=== PATIENT | male | born 1945 | race Hispanic/Latino ===

== ENCOUNTER 2018-07-17 13:53 | Emergency (ER) | payer MEDICARE, OTHER ==
[~2018-07-17] VITALS: Ht 170.2 cm; Wt 63.5 kg
--- OUTSIDE RECORDS SUMMARY | 2018-07-17 13:56 | XMS REPORT | Clinical Summary ---
Author Author [facility]ine [facility] Organization [facility] Address Unknown Phone Unavailable Care Team Providers Care Electrochemist Name Role Phone Asked, No Pcp PCP Unavailable Allergies No Known Allergies Current Medications Prescription Sig. Disp. Refills Start End Date Status Date ticagrelor (BRILINTA) 90 Take 90 mg by mouth 2 Active mg tablet (two) times a day. pravastatin (PRAVACHOL) Take 40 mg by mouth Active 40 MG tablet daily. lisinopril Take 2.5 mg by mouth Active (PRINIVIL,ZESTRIL) 2.5 mg daily. tablet pregabalin (LYRICA) 75 MG Take 75 mg by mouth 2 Active capsule (two) times a day. famotidine (PEPCID) 20 MG Take 20 mg by mouth 2 Active tablet (two) times a day. rivaroxaban (XARELTO) 15 Take 15 mg by mouth. Active mg tablet empagliflozin (JARDIANCE) Take 10 mg by mouth Active 10 mg tablet tablet daily. Active Problems No known active problems Encounters Date Type Specialty Care Team Description 05/19/2018 [facility] Procedural Cardiology Antonino Ontiveros MD PAD (peripheral artery Encounter disease); Claudication, class II 05/19/2018 Orders Only Cardiology Antonino Ontiveros MD 05/19/2018 Procedure Pass Procedural Cardiology 05/19/2018 Procedure Pass Procedural Cardiology 05/19/2018 Surgery Procedural Cardiology Antonino Ontiveros MD Aortagram abdomen w run off [70245 (CPT)] after 07/16/2017 Social History Tobacco Use Types Packs/Day Years Used Date Former Smoker Smokeless Tobacco: Never Used Alcohol Use Drinks/Week oz/Week Comments No Sex Assigned at Date Recorded Not on file Last Filed Vital Signs Vital Sign Reading Time Taken Blood Pressure 111/74 05/19/2018 9:45 PM CDT Pulse 61 05/19/2018 9:45 PM CDT Temperature 37 C (98.6 F) 05/19/2018 5:35 PM CDT Respiratory Rate 15 05/19/2018 9:45 PM CDT Oxygen Saturation 98% 05/19/2018 9:45 PM CDT Inhaled Oxygen - - Concentration Weight 63.5 kg (140 lb) 05/19/2018 9:30 AM CDT Height 170.2 cm (5' 7") 05/19/2018 9:30 AM CDT Body Mass Index 21.93 05/19/2018 9:30 AM CDT Plan of Treatment Not on file Procedures Procedure Name Priority Date/Time Associated Diagnosis Comments POC GLUCOSE Routine 05/19/2018 Results for this 5:52 PM CDT procedure are in the results section. PARTIAL THROMBOPLASTIN STAT 05/19/2018 Results for this TIME (PTT) 9:25 AM CDT procedure are in the results section. PROTHROMBIN TIME WITH INR STAT 05/19/2018 Results for this 9:25 AM CDT procedure are in the results section. HC COMPLETE BLD COUNT STAT 05/19/2018 Results for this W/AUTO DIFF 9:25 AM CDT procedure are in the results section. ECG PRE/POST OP STAT 05/19/2018 Results for this 8:55 AM CDT procedure are in the results section. ZZESTIMATED GFR STAT 05/19/2018 Results for this 8:55 AM CDT procedure are in the results section. BASIC METABOLIC PANEL STAT 05/19/2018 Results for this 8:55 AM CDT procedure are in the results section. POC GLUCOSE Routine 05/19/2018 Results for this 8:49 AM CDT procedure are in the results section. after 07/16/2017 Results * POC glucose (05/19/2018 5:52 PM) Only the most recent of 2 results within the time period is included. POC glucose 77 65 - 99 mg/dL [facility] DEPARTMENT OF Comment: PATHOLOGY AND Meter ID: [id number] GENOMIC MEDICINE Steam Generating Powerplant Mechanic: Chalino Marin Performing Organization Address City/State/Zipcode Phone Number [facility] DEPARTMENT OF [address] [place] [address] PATHOLOGY AND GENOMIC MEDICINE * Partial thromboplastin time, activated (05/19/2018 9:25 AM) PTT 31.9 23.0 - 36.0 sec [facility] DEPARTMENT OF Comment: PATHOLOGY AND PTT therapeutic range for GENOMIC MEDICINE unfractionated heparin is 61.0-112.0 seconds which corresponds to Anti-Xa 0.3-0.7 U/ml. Specimen Blood Performing Organization Address City/[facility]/Zipcode Phone Number [address] [address] PATHOLOGY AND [facility] * Prothrombin time with INR (05/19/2018 9:25 AM) Prothrombin time 13.4 12.0 - 15.0 sec [facility] DEPARTMENT OF PATHOLOGY AND GENOMIC MEDICINE INR 1.0 [facility] DEPARTMENT OF Comment: PATHOLOGY AND The International Normalized GENOMIC MEDICINE Ratio (INR) is a therapeutic monitoring tool for patients who are stable on oral anticoagulant therapy. An INR of 2.0-3.0 is suggested for deep vein thrombosis/pulmonary embolism. Specimen Blood Performing Organization Address [facility] Centercode Phone Number [address] [address] PATHOLOGY AND [facility] * CBC with platelet and differential (05/19/2018 9:25 AM) WBC 6.00 4.50 - 11.00 k/uL [facility] DEPARTMENT OF PATHOLOGY AND GENOMIC MEDICINE RBC 3.80 (L) 4.40 - 6.00 m/uL [facility] DEPARTMENT OF PATHOLOGY AND GENOMIC MEDICINE HGB 11.9 (L) 14.0 - 18.0 g/dL [facility] DEPARTMENT OF PATHOLOGY AND GENOMIC MEDICINE HCT 35.3 (L) 41.0 - 51.0 % [facility] DEPARTMENT OF PATHOLOGY AND GENOMIC MEDICINE MCV 92.9 82.0 - 100.0 fL [facility] DEPARTMENT OF PATHOLOGY AND GENOMIC MEDICINE MCH 31.3 27.0 - 34.0 pg [facility] DEPARTMENT OF PATHOLOGY AND GENOMIC MEDICINE MCHC 33.7 31.0 - 37.0 g/dL [facility] DEPARTMENT OF PATHOLOGY AND GENOMIC MEDICINE RDW - SD 48.2 37.0 - 55.0 fL [facility] DEPARTMENT OF PATHOLOGY AND GENOMIC MEDICINE MPV 9.4 8.8 - 13.2 fL [facility] DEPARTMENT OF PATHOLOGY AND GENOMIC MEDICINE Platelet count 227 150 - 400 k/uL [facility] DEPARTMENT OF PATHOLOGY AND GENOMIC MEDICINE Nucleated RBC 0.00 /100 WBC [facility] DEPARTMENT OF PATHOLOGY AND GENOMIC MEDICINE Neutrophils 56.3 39.0 - 69.0 % [facility] DEPARTMENT OF PATHOLOGY AND GENOMIC MEDICINE Lymphocytes 22.3 (L) 25.0 - 45.0 % [facility] DEPARTMENT OF PATHOLOGY AND GENOMIC MEDICINE Monocytes 7.2 0.0 - 10.0 % [facility] DEPARTMENT OF PATHOLOGY AND GENOMIC MEDICINE Eosinophils 13.2 (H) 0.0 - 5.0 % [facility] DEPARTMENT OF PATHOLOGY AND GENOMIC MEDICINE Basophils 0.7 0.0 - 1.0 % [facility] DEPARTMENT OF PATHOLOGY AND GENOMIC MEDICINE Immature granulocytes 0.3Comment: "Immature 0.0 - 1.0 % [facility] DEPARTMENT OF granulocytes" (promyelocytes, PATHOLOGY AND myelocytes, metamyelocytes) GENOMIC MEDICINE Specimen Blood Performing Organization Address City/[facility]/Zipcode Phone Number [address] [address] PATHOLOGY AND GENOMIC MEDICINE * ECG Pre/Post Op (05/19/2018 8:55 AM) Ventricular rate 62 [facility] Atrial rate 62 [facility] QRSD interval 68 [facility] QT interval 392 [facility] QTC interval 397 [facility] QRS axis 1 -18 [facility] T wave axis 32 [facility] EKG impression Atrial-paced rhythm-Abnormal [facility] ECG-No previous ECGs available- Performing Organization Address [facility] Centercoaz Phone Number [address] [address] * Estimated GFR (05/19/2018 8:55 AM) GFR Non Af Amer 74 mL/min/1.73 m2 [facility] DEPARTMENT OF PATHOLOGY AND GENOMIC MEDICINE GFR Af Amer 89 mL/min/1.73 m2 [facility] DEPARTMENT OF Comment: PATHOLOGY AND Chronic kidney disease: <60 GENOMIC MEDICINE mL/min/1.73m2 Kidney failure: <15 mL/min/1.73m2 The estimated GFR is calculated from the IDMS-traceable Modification of Diet in Renal Disease Equation. The accuracy of the calculation is poor when the creatinine is normal. Calculated values >90 mL/min/1.73m2 are not reported. This equation has not been validated in children (<18 years), women, the elderly (>70 years), or ethnic groups other than Caucasians and Americans. Specimen Plasma specimen Performing Organization Address [facility] Centercode Phone Number [address] [address] PATHOLOGY AND [facility] * Basic metabolic panel (05/19/2018 8:55 AM) Sodium 140 135 - 148 mEq/L [facility] DEPARTMENT OF PATHOLOGY AND GENOMIC MEDICINE Potassium 5.1 (H) 3.5 - 5.0 mEq/L [facility] DEPARTMENT OF PATHOLOGY AND GENOMIC MEDICINE Chloride 105 98 - 112 mEq/L [facility] DEPARTMENT OF PATHOLOGY AND GENOMIC MEDICINE CO2 23 (L) 24 - 31 mEq/L [facility] DEPARTMENT OF PATHOLOGY AND GENOMIC MEDICINE Anion gap 12@ANIO 7 - 15 mEq/L [facility] DEPARTMENT OF PATHOLOGY AND GENOMIC MEDICINE BUN 24 (H) 8 - 23 mg/dL [facility] DEPARTMENT OF PATHOLOGY AND GENOMIC MEDICINE Creatinine 1.0 0.7 - 1.2 mg/dL [facility] DEPARTMENT OF PATHOLOGY AND GENOMIC MEDICINE Glucose 82 65 - 99 mg/dL [facility] DEPARTMENT OF PATHOLOGY AND GENOMIC MEDICINE Calcium 9.0 8.8 - 10.2 mg/dL [facility] DEPARTMENT OF PATHOLOGY AND GENOMIC MEDICINE Specimen Plasma specimen Performing Organization Address City/State/Zipcode Phone Number [facility] DEPARTMENT OF [address] [place] [phone] PATHOLOGY AND GENOMIC MEDICINE after 07/16/2017 Insurance Payer Benefit Subscriber ID Type Phone Address Plan / Group [employer] MED[employer]ARE [employer] xxxxxxxxx O MCR SOLUTIONS U[employer] MEDICARE UHC DUAL xxxxxxxxx O COMPLETE MCR
[2018-07-17] MEDS ORDERED: TETANUS/DIPHTHERIA TOX ADULT 0.5 ML SYR IM ONE (14:30)
[2018-07-17] MEDS ORDERED: NEOMYCIN/POLYMYX/BACITR OINT 0.9 GM PKT TOP ONE (14:30)
== END 2018-07-17 15:02 | disposition home or self-care (01) ==
LOC: ER 13:53
DX: S80.211A Abrasion, right knee, initial encounter (principal); W17.89XA Other fall from one level to another, initial encounter; Y92.481 Parking lot as the place of occurrence of the external cause; E11.9 Type 2 diabetes mellitus without complications; I10 Essential (primary) hypertension; I73.9 Peripheral vascular disease, unspecified; Z89.512 Acquired absence of left leg below knee
CPT/HCPCS: 90471; 90714; 99283

== ENCOUNTER → 2018-09-25 | Outpatient (CLI) | payer OTHER ==
[~2018-09-25] MED LIST: IOPAMIDOL 370 MG/ML 200 ML INFUS..BTL INJ ONE; SODIUM CHLORIDE 0.9% 50ML 50 ML ONE
[2018-09-25 07:26] LABS: BLOOD UREA NITROGEN 18 mg/dL (7-26); BUN/CREATININE RATIO 17 (6-25); CREATININE, SERUM 1.09 mg/dL (0.72-1.25); EST GLOMERULAR FILTRATION RATE > 60 ML/MIN (60-)
--- NOTE | 2018-09-25 09:11 | Diagnostic Imaging Report ---
CTA abdomen and pelvis with contrast with bilateral lower extremity runoff Clinical history: PAD, claudication. Comparison: None. Technique: Arterial phase CT abdomen and pelvis and bilateral lower extremities after administration of 100 mL Isovue-370 intravenous contrast. Volume rendered 3-D images of the arterial tree generated on an independent workstation under physician supervision. RADIATION DOSE: DLP: 629.5 mGy cm Dose modulation, iterative reconstruction, and/or weight based adjustment of the mA/kV was utilized to reduce the radiation dose to as low as reasonably achievable. FINDINGS: VASCULAR: Aortic dimensions: Diaphragmatic hiatus: 2.6 cm Level of the renal arteries: 2.0 cm Infrarenal aorta: 2.2 cm Right common iliac artery: 0.8 cm Left common iliac artery: 0.9 cm. No evidence of dissection or aneurysm. There is moderate atherosclerotic calcifications of the upper and mid abdominal aorta. Extensive calcified and non-calcified atherosclerotic changes of the distal aorta with focal moderate stenosis on series 4, image 49. The celiac artery is patent and large caliber. 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 Likely mild stenosis of the ARLENE at its origin. Renal arteries: Single bilateral renal arteries. Atherosclerotic changes of bilateral renal arteries with focal moderate stenosis in the proximal left renal artery and likely moderate stenosis of the mid right renal artery. Extensive atherosclerotic changes of bilateral common and internal iliac arteries and left external iliac artery with multifocal moderate stenoses. Right internal iliac artery is somewhat diminutive but patent. Right lower extremity: Moderate atherosclerotic changes within the right common femoral artery and superficial femoral artery. Multifocal mild to moderate stenoses of the superficial femoral artery. The profunda femoris artery demonstrates mild atherosclerotic changes and is patent. Moderate atherosclerotic changes with moderate focal stenosis of the right popliteal artery. Moderate atherosclerotic changes within the tibioperoneal trunk. Multifocal severe stenoses of the origin of the peroneal artery which is occluded just beyond the origin. Anterior tibial artery demonstrates mild to moderate stenosis proximally but is patent throughout its course. The posterior tibial artery demonstrates moderate to severe atherosclerotic changes proximally but no significant stenosis in the mid portion or distally. The posterior tibial artery is diminutive but patent until just above the ankle. The posterior tibial artery is not visualized at the level of the medial ankle. Left lower extremity: There has been left [id number] amputation. Atherosclerotic changes of the left common femoral artery which is somewhat diminutive and demonstrates moderate stenosis. The left superficial femoral artery is occluded throughout its course. There is a femoral bypass graft which is completely occluded on the left. The left profunda femoris artery demonstrates extensive atherosclerotic changes proximally with focal severe stenosis on series 4, image 101 and multifocal mild stenosis in the mid portion and distally and is the sole arterial supply to the leg. The popliteal artery is occluded. NON-VASCULAR FINDINGS: Lung bases: Left lower lobe cluster of cysts with thin lomas. Patchy dependent atelectasis. Partially seen pacemaker lead. Liver: No evidence of focal mass. No evidence of biliary ductal dilatation. Status post cholecystectomy. Pancreas: Unremarkable. Spleen: No splenomegaly. Adrenal glands: Unremarkable. Kidneys: No evidence of hydronephrosis, stone, or solid mass. Simple left mid pole renal cyst. Urinary bladder: Unremarkable. Bowel: Normal caliber. No evidence of bowel obstruction. The transverse colon is decompressed and demonstrates mild fatty infiltration of the wall, which may represent sequela of prior inflammatory changes. Peritoneum: No free air or fluid. Lymph nodes: Normal Bones and soft tissues: No acute bony abnormality. IMPRESSION: No evidence of abdominal aortic aneurysm or dissection. Extensive atherosclerotic changes of the distal aorta with focal moderate stenosis. Moderate atherosclerotic changes of the iliac vasculature. Occlusion of the SMA origin. Patent and robust celiac artery which reconstitutes the proximal SMA via pancreaticoduodenal collaterals. Likely mild stenosis of the ARLENE at the origin which is patent. Left below the knee amputation. Occluded left SFA and left SFA bypass graft throughout their course. Moderate to severe stenosis of the proximal left profunda femoris artery which is patent and is the sole arterial supply to the left leg. Occluded left popliteal artery. Moderate atherosclerotic changes with stenoses of the right superficial femoral artery and popliteal artery. Occluded right peroneal artery. Mild to moderate atherosclerotic changes of the right anterior tibial artery which is patent throughout its course, and is the main runoff to the foot. Right posterior tibial artery demonstrates moderate to severe atherosclerotic changes proximally but is patent until its distal portion just above the ankle. Nonvisualization of the right posterior tibial artery at the ankle could represent occlusion or slow flow, and delayed images were not obtained to differentiate the two. Signed by: Dr. Jeanne Arellano MD on 09/25/2018 9:08 AM
== END ==
LOC: CT 09-22 13:33
PROVIDERS: ATTEND Internal Medicine Interventional Cardiology
DX: I73.9 Peripheral vascular disease, unspecified (principal)
CPT/HCPCS: 36415; 75635; 82565; 84520; Q9967

== ENCOUNTER 2018-10-24 13:20 | Observation (INO) | payer MEDICARE, OTHER ==
[2018-10-23 15:29] LABS: BASOPHILS # (AUTO) 0.1 (0.0-0.1); BASOPHILS % 0.7 % (0.0-1.0); EOSINOPHILS # (AUTO) 0.8 (0.0-0.4); EOSINOPHILS % 10.4 % (0.0-6.0); HEMATOCRIT 38.1 % (38.2-49.6); HEMOGLOBIN 13.1 g/dL (14.0-18.0); LYMPHOCYTES # (AUTO) 1.9 (1.0-3.2); LYMPHOCYTES % 24.8 % (18.0-39.1); MEAN CORPUSCULAR HEMOGLOBIN 30.3 pg (28-32); MEAN CORPUSCULAR HGB CONC 34.4 g/dL (31-35); MEAN CORPUSCULAR VOLUME 88.2 fL (81-99); MONOCYTES # (AUTO) 0.6 (0.2-0.8); MONOCYTES % 7.7 % (4.4-11.3); NEUTROPHILS # (AUTO) 4.3 (2.1-6.9); NEUTROPHILS % 56.1 % (38.7-80.0); PLATELET COUNT 246 x10e3/uL (140-360); RED BLOOD COUNT 4.32 x10e6/uL (4.3-5.7); RED CELL DISTRIBUTION WIDTH 15.9 % (11.7-14.4)
[2018-10-23 15:47] LABS: INR 0.87; PROTHROMBIN TIME 12.6 seconds (11.9-14.5)
[2018-10-23 15:54] LABS: ALANINE AMINOTRANSFERASE 13 IU/L (0-55); ALBUMIN 3.8 g/dL (3.5-5.0); ALBUMIN/GLOBULIN RATIO 1.3 (0.8-2.0); ALKALINE PHOSPHATASE 97 IU/L (40-150); BLOOD UREA NITROGEN 19 mg/dL (7-26); BUN/CREATININE RATIO 20 (6-25); CALCIUM 9.3 mg/dL (8.4-10.2); CARBON DIOXIDE 23 mmol/L (22-29); CHLORIDE 105 mmol/L (98-107); CHOL/HDL RATIO 2.9 (3.9-4.7); CHOLESTEROL 155 MD/DL (0-199); CREATININE, SERUM 0.93 mg/dL (0.72-1.25); EST GLOMERULAR FILTRATION RATE > 60 ML/MIN (60-); GLUCOSE 88 mg/dL (74-118); HDL CHOLESTEROL 54 MG/DL (40-60); LDL CHOLESTEROL 81 MG/DL (60-130); SODIUM 137 mmol/L (136-145); TRIGLYCERIDES 101 MG/DL (0-149)
[~2018-10-24] VITALS: Ht 170.2 cm; Wt 63.5 kg
[2018-10-24] VITALS (8 sets, daily range): BP systolic 108–139; BP diastolic 73–85
--- NOTE | 2018-10-24 12:30 | NUR ---
Farooq Supv. notified pt needs tele box .Ivette OLEARY Rn to apply tele box to pt .Farooq tesfaye notified personally tele room and nurse
--- OUTSIDE RECORDS SUMMARY | 2018-10-24 13:23 | XMS REPORT | Clinical Summary ---
Author Author [facility] Organization [facility] Address Unknown Phone Unavailable Care Team Providers Care Produce Associate Name Role Phone Asked, No Pcp PCP Unavailable Allergies No Known Allergies Medications End Date Status Medication Sig Dispensed Refills Start Date Active ticagrelor (BRILINTA) 90 Take 90 mg by 0 mg tablet mouth 2 (two) times a day. Active pravastatin (PRAVACHOL) Take 40 mg by 0 40 MG tablet mouth daily. Active lisinopril Take 2.5 mg 0 (PRINIVIL,ZESTRIL) 2.5 mg by mouth tablet daily. Active pregabalin (LYRICA) 75 MG Take 75 mg by 0 capsule mouth 2 (two) times a day. Active famotidine (PEPCID) 20 MG Take 20 mg by 0 tablet mouth 2 (two) times a day. Active rivaroxaban (XARELTO) 15 Take 15 mg by 0 mg tablet mouth. Active empagliflozin (JARDIANCE) Take 10 mg by 0 10 mg tablet tablet mouth daily. Active Problems No known active problems Encounters Care Team Description Date Type Specialty Antonino Ontiveros MD Aortagram abdomen w run off [15804 (CPT)] 05/19/2018 Surgery Procedural Cardiology Antonino Ontiveros MD PAD (peripheral artery disease); Claudication, class II 05/19/2018 Hospital Procedural Cardiology Encounter Antonino Ontiveros MD 05/19/2018 Orders Only Cardiology after 10/23/2017 Social History Date Tobacco Use Types Packs/Day Years Used Former Smoker Smokeless Tobacco: Never Used Alcohol Use Drinks/Week oz/Week Comments No Sex Assigned at Date Recorded Not on file Industry Job Start Date Occupation Not on file Not on file Not on file Travel End Travel History Travel Start No recent travel history available. Last Filed Vital Signs Time Taken Vital Sign Reading 05/19/2018 9:45 PM CDT Blood Pressure 111/74 05/19/2018 9:45 PM CDT Pulse 61 05/19/2018 5:35 PM CDT Temperature 37 C (98.6 F) 05/19/2018 9:45 PM CDT Respiratory Rate 15 05/19/2018 9:45 PM CDT Oxygen Saturation 98% - Inhaled Oxygen - Concentration 05/19/2018 9:30 AM CDT Weight 63.5 kg (140 lb) 05/19/2018 9:30 AM CDT Height 170.2 cm (5' 7") 05/19/2018 9:30 AM CDT Body Mass Index 21.93 Plan of Treatment Not on file Procedures Comments Procedure Name Priority Date/Time Associated Diagnosis POC GLUCOSE Routine 05/19/2018 5:52 PM CDT CV ARTERIOGRAMS Routine 05/19/2018 PAD (peripheral artery PERIPHERAL 5:21 PM CDT disease) ([facility]) Claudication, class II (HCC) AORTAGRAM ABDOMEN WITH Routine 05/19/2018 PAD (peripheral artery RUN OFF 5:21 PM CDT disease) ([facility]) Claudication, class II (HCC) PARTIAL THROMBOPLASTIN STAT 05/19/2018 TIME (PTT) 9:25 AM CDT PROTHROMBIN TIME WITH INR STAT 05/19/2018 9:25 AM CDT HC COMPLETE BLD COUNT STAT 05/19/2018 W/AUTO DIFF 9:25 AM CDT ECG PRE/POST OP STAT 05/19/2018 8:55 AM CDT ZZESTIMATED GFR STAT 05/19/2018 8:55 AM CDT BASIC METABOLIC PANEL STAT 05/19/2018 8:55 AM CDT POC GLUCOSE Routine 05/19/2018 8:49 AM CDT after 10/23/2017 Results * POC glucose (05/19/2018 5:52 PM CDT) Only the most recent of 2 results within the time period is included. POC glucose 77 65 - 99 mg/dL [facility] DEPARTMENT OF Comment: PATHOLOGY AND Meter ID: [id number] GENOMIC MEDICINE Violin Maker Hand: Chalino Marin Performing Organization Address [facility]/Zipcode Phone Number [facility] DEPARTMENT [address] [address] PATHOLOGY AND GENOMIC MEDICINE * Cv botany laboratory assistant procedure (05/19/2018 5:21 PM CDT) Narrative Performed At [facility] Procedure:1.Selective abdominal aortogram 2.Selective bilateral lower extremities angiograms Indication:Resting claudication with abnormal non-invasive vascular study Ischemic limb s/p unilateral amputation Procedure:Please refer to CV botany laboratory assistant procedure dicumentation Results: 1.No significant stenosis or aneurysmal dilatation in the abdominal aortic distribution 2.Significant bilateral obstructive peripheral arterial disease Performing Organization Address [facility] Cent[facility]ode Phone Number [address] [address] * Partial thromboplastin time, activated (05/19/2018 9:25 AM CDT) PTT 31.9 23.0 - 36.0 sec [facility] DEPARTMENT OF Comment: PATHOLOGY AND PTT therapeutic range for [facility] MEDICINE unfractionated heparin is 61.0-112.0 seconds which corresponds to Anti-Xa 0.3-0.7 U/ml. Specimen Blood Performing Organization Address [facility]/Zipcode Phone Number [address] [address] PATHOLOGY AND [facility] MEDICINE * Prothrombin time with INR (05/19/2018 9:25 AM CDT) Prothrombin time 13.4 12.0 - 15.0 sec [facility] DEPARTMENT OF PATHOLOGY AND GENOMIC MEDICINE INR 1.0 [facility] DEPARTMENT OF Comment: PATHOLOGY AND The International Normalized GENOMIC MEDICINE Ratio (INR) is a therapeutic monitoring tool for patients who are stable on oral anticoagulant therapy. An INR of 2.0-3.0 is suggested for deep vein thrombosis/pulmonary embolism. Specimen Blood Performing Organization Address [facility]/Zipcode Phone Number [facility] DEPARTMENT [facility] [place] [address] PATHOLOGY AND [facility] MEDICINE * CBC with platelet and differential (05/19/2018 9:25 AM CDT) WBC 6.00 4.50 - 11.00 k/uL [facility] DEPARTMENT OF PATHOLOGY AND GENOMIC MEDICINE RBC 3.80 (L) 4.40 - 6.00 m/uL [facility] DEPARTMENT OF PATHOLOGY AND GENOMIC MEDICINE HGB 11.9 (L) 14.0 - 18.0 g/dL [facility] DEPARTMENT OF PATHOLOGY AND GENOMIC MEDICINE HCT 35.3 (L) 41.0 - 51.0 % [facility] DEPARTMENT OF PATHOLOGY AND GENOMIC MEDICINE MCV 92.9 82.0 - 100.0 fL [facility] DEPARTMENT OF PATHOLOGY AND GENOMIC MEDICINE MCH 31.3 27.0 - 34.0 pg [facility] DEPARTMENT OF PATHOLOGY AND GENOMIC MEDICINE MCHC 33.7 31.0 - 37.0 g/dL [facility] DEPARTMENT OF PATHOLOGY AND GENOMIC MEDICINE RDW - SD 48.2 37.0 - 55.0 fL [facility] DEPARTMENT OF PATHOLOGY AND GENOMIC MEDICINE MPV 9.4 8.8 - 13.2 fL [facility] DEPARTMENT OF PATHOLOGY AND GENOMIC MEDICINE Platelet count 227 150 - 400 k/uL [facility] DEPARTMENT OF PATHOLOGY AND GENOMIC MEDICINE Nucleated RBC 0.00 /100 WBC [facility] DEPARTMENT OF PATHOLOGY AND GENOMIC MEDICINE Neutrophils 56.3 39.0 - 69.0 % [facility] DEPARTMENT OF PATHOLOGY AND GENOMIC MEDICINE Lymphocytes 22.3 (L) 25.0 - 45.0 % [facility] DEPARTMENT OF PATHOLOGY AND GENOMIC MEDICINE Monocytes 7.2 0.0 - 10.0 % [facility] DEPARTMENT OF PATHOLOGY AND GENOMIC MEDICINE Eosinophils 13.2 (H) 0.0 - 5.0 % [facility] DEPARTMENT OF PATHOLOGY AND GENOMIC MEDICINE Basophils 0.7 0.0 - 1.0 % [facility] DEPARTMENT OF PATHOLOGY AND GENOMIC MEDICINE Immature granulocytes 0.3Comment: "Immature 0.0 - 1.0 % [facility] DEPARTMENT OF granulocytes" (promyelocytes, PATHOLOGY AND myelocytes, metamyelocytes) GENOMIC MEDICINE Specimen Blood Performing Organization Address City/[facility] Cent[facility]ode Phone Number [address] [address] PATHOLOGY AND GENOMIC MEDICINE * ECG Pre/Post Op (05/19/2018 8:55 AM CDT) Ventricular rate 62 [facility] Atrial rate 62 [facility] QRSD interval 68 [facility] QT interval 392 [facility] QTC interval 397 [facility] QRS axis 1 -18 [facility] T wave axis 32 [facility] EKG impression Atrial-paced rhythm-Abnormal [facility] ECG-No previous ECGs available- Performing Organization Address City/[facility]ode Phone Number [facility] [address] [place] [address] * Estimated GFR (05/19/2018 8:55 AM CDT) GFR Non Af Amer 74 mL/min/1.73 m2 [facility] DEPARTMENT OF PATHOLOGY AND GENOMIC MEDICINE GFR Af Amer 89 mL/min/1.73 m2 [facility] DEPARTMENT OF Comment: PATHOLOGY AND Chronic [...] Americans. Specimen Plasma specimen Performing Organization Address [facility] Centercode Phone Number [address] [address] PATHOLOGY AND GENOMIC MEDICINE * Basic metabolic panel (05/19/2018 8:55 AM CDT) Sodium 140 135 - 148 mEq/L [facility] DEPARTMENT OF PATHOLOGY AND GENOMIC MEDICINE Potassium 5.1 (H) 3.5 - 5.0 mEq/L [facility] DEPARTMENT OF PATHOLOGY AND GENOMIC MEDICINE Chloride 105 98 - 112 mEq/L [facility] DEPARTMENT OF PATHOLOGY AND GENOMIC MEDICINE CO2 23 (L) 24 - 31 mEq/L [facility] DEPARTMENT OF PATHOLOGY AND GENOMIC MEDICINE Anion gap 12@ANIO 7 - 15 mEq/L [facility] DEPARTMENT OF PATHOLOGY AND GENOMIC MEDICINE BUN 24 (H) 8 - 23 mg/dL [facility] DEPARTMENT OF PATHOLOGY AND GENOMIC MEDICINE Creatinine 1.0 0.7 - 1.2 mg/dL [facility] DEPARTMENT OF PATHOLOGY AND GENOMIC MEDICINE Glucose 82 65 - 99 mg/dL [facility] DEPARTMENT OF PATHOLOGY AND GENOMIC MEDICINE Calcium 9.0 8.8 - 10.2 mg/dL [facility] DEPARTMENT OF PATHOLOGY AND GENOMIC MEDICINE Specimen Plasma specimen Performing Organization Address City/State/Zipcode Phone Number [facility] DEPARTMENT [facility] [place] [address] PATHOLOGY AND GENOMIC MEDICINE after 10/23/2017 Insurance Payer Benefit Subscriber ID Type Phone Address Plan / Group UHC MEDICARE UHC xxxxxxxxx O MEDICARE COMPLETE UHC MEDICARE UHC DUAL xxxxxxxxx O COMPLETE [facility] Advance Directives Patient has advance care planning documents on file. For more information, autumn carnes contact: Nilson Rivera [address] [place] [address]
--- OUTSIDE RECORDS SUMMARY | 2018-10-24 13:23 | XMS REPORT ---
Author Author [facility] Address Unknown Phone Unavailable Care Team Providers Care Publishing Specialist Name Role Phone SELINA GARCIA Unavailable Unavailable Payers Payer Name Policy Type Policy Number Effective Date Expiration Date Problems This patient has no known problems. Allergies, Adverse Reactions, Alerts Allergy Name Allergy Type Status Severity Reaction(s) Onset Date Inactive Date Treating Clinician Comments No Known Allergies DA Active U 2016-11-10 00:00:00 Medications This patient has no known medications. Results Test Description Test Time Test Comments Text Results Atomic Results Result Comments CTA ABD/PEL/RUN OFF 2018-09-25 08:16:00 [place] [address] Patient Name: RYLEE ALVAREZ MR #: [id number] : 1945 Age/Sex: 72/M Req #: [id number] Adm Physician: Ordered by: SELINA GARCIA MD Report #: [id number] Location: CT Room/Bed: Procedure: [id number] CT/CTA ABD/PEL/RUN OFF Exam Date: 09/25/18 Exam Time: 0748 REPORT STATUS: Signed CTA abdomen and pelvis with contrast with bilateral lo wer extremity runoff Clinical history: PAD, claudication. Comparison: None. Technique: Arterial phase CT abdomen and pelvis and bilateral lower extremities after administration of 100 mL Isovue-370 intravenous contrast. Volume rendered 3-D images of the arterial tree generated on an independent workstation under physician supervision. RADIATION DOSE: DLP: 629.5 mGy cm Dose modulation, iterative reconstruction, and/or weight based adjustment of the mA/kV was utilized to reduce the radiation dose to as low as reasonably achievable. FINDINGS: VASCULAR: Aortic dimensions: Diaphragmatic hiatus: 2.6 cm Level of the renal arteries: 2.0 cm Infrarenal aorta: 2.2 cm Right common iliac artery: 0.8 cm Left common iliac artery: 0.9 cm. No evidence of dissection or aneurysm. There is moderate atherosclerotic calcifications of the upper and mid abdominal aorta. Extensive calcified and non-calcified atherosclerotic changes of the distal aorta with focal moderate stenosis on series 4, image 49. The celiac artery is patent and large caliber. 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 Likely mild stenosis of the ARLENE at its origin. Renal arteries: Single bilateral renal arteries. Atherosclerotic changes of bilateral renal arteries with focal mod erate stenosis in the proximal left renal artery and likely moderate stenosis of the mid right renal artery. Extensive atherosclerotic changes of bilateral common and internal iliac arteries and left external iliac artery with multifocal moderate stenoses. Right internal iliac artery is somewhat diminutive but patent. Right lower extremity: Moderate atherosclerotic changes within the right common femoral artery and superficial femoral artery. Multifocal mild to moderate stenoses of the superficial femoral artery. The profunda femoris artery demonstrates mild atherosclerotic changes and is patent. Moderate atherosclerotic changes with moderate focal stenosis of the right popliteal artery. Moderate atherosclerotic changes within the tibioperoneal trunk. Multifocal severe stenoses of the origin of the peroneal artery which is occluded just beyond the origin. Anterior tibial artery demonstrates mild to moderate stenosis proximally but is patent throughout its course. The posterior tibial artery demonstrates moderate to severe atherosclerotic changes proximally but no significant stenosis in the mid portion or distally. The posterior tibial artery is diminutive but patent until just above the ankle. The posterior tibial artery is not visualized at the level of the medial ankle. Left lower extremity: There has been left [id number] amputation. Atherosclerotic changes of the left common femoral artery which is somewhat diminutive and demonstrates moderate stenosis. The left superficial femoral artery is occluded throughout its course. There is a femoral bypass graft which is completely occluded on the left. The left profunda femoris artery demonstrates extensive atherosclerotic changes proximally with focal severe stenosis on series 4, image 101 and multifocal mild stenosis in the mid portion and distally and is the sole arterial supply to the leg. The popliteal artery is occluded. NON-VASCULAR FINDINGS: Lung bases: Left lower lobe cluster of cysts with thin lomas. Patchy dependent atelectasis. Partially seen pacemaker lead. Liver: No evidence of focal mass. No evidence of biliary ductal dilatation. Status post cholecystectomy. Pancreas: Unremarkable. Spleen: No splenomegaly. Adrenal glands: Unremarkable. Kidneys: No evidence of hydronephrosis, stone, or solid mass. Simple left mid pole renal cyst. Urinary bladder: Unremarkable. Bowel: Normal caliber. No evidence of bowel obstruction. The transverse colon is decompressed and demonstrates mild fatty infiltration of the wall, which may represent sequela of prior inflammatory changes. Peritoneum: No free air or fluid. Lymph nodes: Normal Bones and soft tissues: No acute bony abnormality. IMPRESSION: No evidence of abdominal aortic aneurysm or dissection. Extensive atherosclerotic changes of the distal aorta with focal moderate stenosis. Moderate atherosclerotic changes of the iliac vasculature. Occlusion of the SMA origin. Patent and robust celiac artery which reconstitutes the proximal SMA via pancreaticoduodenal collaterals. Likely mild stenosis of the ARLENE at the origin which is patent. Left below the knee amputation. Occluded left SFA and left SFA bypass graft throughout their course. Moderate to severe stenosis of the proximal left profunda femoris artery which is patent and is the sole arterial supply to the left leg. Occluded left popliteal artery. Moderate atherosclerotic changes with stenoses of the right superficial femoral artery and popliteal artery. Occlu ded right peroneal artery. Mild to moderate atherosclerotic changes of the right anterior tibial artery which is patent throughout its course, and is the main runoff to the foot. Right posterior tibial artery demonstrates moderate to severe atherosclerotic changes proximally but is patent until its distal portion just above the ankle. Nonvisualization of the right posterior tibial artery at the ankle could represent occlusion or slow flow, and delayed images were not obtained to differentiate the two. Signed by: Dr. Eileen Tapia MD on 09/25/2018 9:08 AM Dictated By: EILEEN TAPIA MD 7 Transcribed By: LUBA on 09/25/18907 COPY TO: SELINA GARCIA MD
--- NOTE | 2018-10-24 14:00 | NUR ---
1400 Received pt in Rm #[address] Zavala Left amputee Bs 84 Iv started left hand #20g x 1 stick 1000cc ns at bedside ready to add. Site w/o s/s infiltration Bilateral femoral groin sites prepped. On assessment pt states has no ride and will drive self home.Taryn ROCHA discussed with pt safety with concerns of medication safety. Pt will get tele observation bed per Md mccoy. Stable vs NPO since 8pm pre med with Xanax 0.5po and Benadryl 50mg po at 1445pm. Denies co of cp or sob. Clothes at bedside Pt has left BKA with prothesis under stretcher.
[2018-10-24] MEDS ORDERED: ALPRAZOLAM 0.5 MG TAB ONE (14:33)
[2018-10-24] MEDS ORDERED: SODIUM CHLORIDE 0.9% 1000ML 1,000 ML ONE ×2 (14:33→18:19)
[2018-10-24] MEDS ORDERED: DIPHENHYDRAMINE HCL 25 MG CAP ONE (14:34)
--- NOTE | 2018-10-24 14:45 | NUR ---
Pt instructed to stay in bed has been premedicated call light at bedside Side rail up bed in low position. Bilateral popliteal pulses are present 1plus bilateral.Comfort measures provided. JOSEFINA Emery (screedman/laborer Nurse)
[2018-10-24] MEDS ORDERED: LYRICA75 MG PO (15:05)
[2018-10-24] MEDS ORDERED: TAMSULOSIN HCL0.4 MG PO (15:05)
[2018-10-24] MEDS ORDERED: BRILINTA90 MG PO (15:05)
[2018-10-24] MEDS ORDERED: HYDROCODON-ACE1 EAC9 PO (15:05)
[2018-10-24] MEDS ORDERED: METFORMIN HCL500 MG PO (15:05)
[2018-10-24] MEDS ORDERED: LISINOPRIL2.5 MG PO (15:05)
[2018-10-24] MEDS ORDERED: PRAVASTATIN SOD40 MG PO (15:05)
[2018-10-24] MEDS ORDERED: JARDIANCE PO (15:05)
[2018-10-24] MEDS ORDERED: TRAZODONE HCL50 MG PO (15:05)
[2018-10-24] MEDS ORDERED: AMITRIPTYLINE H25 MG PO (15:05)
[2018-10-24] MEDS ORDERED: LEVOCETIRIZINE D5 MG PO (15:05)
[2018-10-24] MEDS ORDERED: FAMOTIDINE20 MG PO (15:05)
[2018-10-24] MEDS ORDERED: MIDAZOLAM HCL 2 MG/2 ML VIAL ONE ×2 (17:43→18:06)
[2018-10-24] MEDS ORDERED: HEPARIN SOD/SOD CHLORIDE 2,000 ML ONE (17:44)
[2018-10-24] MEDS ORDERED: LIDOCAINE HCL 2% LOCAL 20 ML VIAL ONE (17:44)
[2018-10-24] MEDS ORDERED: FENTANYL CITRATE/PF 100MCG/2 ML INJ ONE (17:44)
[2018-10-24] MEDS ORDERED: IOPAMIDOL 300MG/ML 100 ML INFUS..BTL IV ONE (17:44)
[2018-10-24] MEDS ORDERED: HEPARIN SOD (PORCINE) 1000 UNIT/ML 30ML ONE (18:19)
[2018-10-24] MEDS ORDERED: VERAPAMIL HCL 2.5 MG/ML 2 ML VIAL ONE (18:20)
[2018-10-24] MEDS ORDERED: PROTAMINE SULFATE 10 MG/ML 5 ML VIAL ONE (18:31)
--- NOTE | 2018-10-24 18:50 | NUR ---
1850 received report from Helena RN Identifierx2. Left peripheral fix with left groin sheath approach. [place] radiologic technologist chief Back to baseline orientation Rass 0, Algrete 10. Resp shallow and regular. Sat 98% room air. Abd soft and non tender denies necessity to defecate and urinate, Rt PP present Left groin dressing to sheath dry and intact. Left iv site dry and intact No sign infiltration iv open per Md order.Bed 179 available and report given for transport post sheath pull and hold 20minutes.
[2018-10-24] MEDS ORDERED: ATROPINE SULFATE 0.1 MG/ML 10ML SYR ONE (18:53)
--- NOTE | 2018-10-24 19:45 | NUR ---
1944 instructed pt to remain gl Addendum: 10/24/18 at 2048 by Alyson Kent RN 1944 instructed pt to remain flat till 115am Report phoned to Ivette Steele Rn site w/o bleeding to left groin Pedal pulses present to rt PT/DP. vs stable with pacer. Iv 1liter infused and site w/o s/s infiltration 1999 transported via stretcher and waffle mattress in place to room 179 and face to face report given Vs stable and food delivered to pt bedside. Denies pain, sob or discomfort Pt aware cannot drive self home tonight due to sedation for procedure given. Stable at this time and monitor remains w/o ectopics.
--- NOTE | 2018-10-24 20:51 | NUR ---
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 PRESSURE DRESSING DRY AND INTACT TO THE LEFT GROIN WITHOUT BLEEDING OR HEMATOMA. PATIENT ORIENTED TO SURROUNDINGS, EDUCATED TO MAINTAIN BEDREST ORDERED. CALL LIGHT AND URINAL WITHIN EASY REACH.
--- OUTSIDE RECORDS SUMMARY | 2018-10-24 21:52 | XMS REPORT | Clinical Summary ---
Author Author [facility] Organization [facility] Address Unknown Phone Unavailable Care Team Providers Care Block Greaser Name Role Phone Asked, No Pcp PCP [...] Ontiveros MD Aortagram abdomen w run off [13976 (CPT)] 05/19/2018 Surgery Procedural Cardiology Antonino Ontiveros [...] (peripheral artery PERIPHERAL 5:21 PM CDT disease) ([facility]) Claudication, class II (HCC) AORTAGRAM ABDOMEN WITH Routine 05/19/2018 PAD (peripheral artery RUN OFF 5:21 PM CDT disease) ([facility]) Claudication, class II (HCC) PARTIAL THROMBOPLASTIN STAT [...] glucose 77 65 - 99 mg/dL [facility] DEPARTMENT OF Comment: PATHOLOGY AND Meter ID: [id number] GENOMIC MEDICINE Flarer: Chalino Marin Performing Organization Address [facility]/Zipcode Phone Number [facility] DEPARTMENT [address] [address] PATHOLOGY AND GENOMIC MEDICINE * Cv lab intern procedure (05/19/2018 5:21 PM CDT) Narrative Performed At [facility] Procedure:1.Selective abdominal aortogram 2.Selective bilateral lower extremities angiograms Indication:Resting claudication with abnormal non-invasive vascular study Ischemic limb s/p unilateral amputation Procedure:Please refer to CV lab intern procedure dicumentation Results: 1.No significant stenosis or aneurysmal dilatation in the abdominal aortic distribution 2.Significant bilateral obstructive peripheral arterial disease Performing Organization Address [facility]ode Phone Number [address] [address] * Partial thromboplastin time, activated (05/19/2018 9:25 AM CDT) PTT 31.9 23.0 - 36.0 sec [facility] DEPARTMENT OF Comment: PATHOLOGY AND PTT therapeutic range for [facility] MEDICINE unfractionated heparin is 61.0-112.0 seconds which corresponds to Anti-Xa 0.3-0.7 U/ml. Specimen Blood Performing Organization Address [facility]/Zipcode Phone Number [address] [address] PATHOLOGY AND [employer] MEDICINE * Prothrombin time with INR (05/19/2018 9:25 AM CDT) Prothrombin time 13.4 12.0 - 15.0 sec [facility] DEPARTMENT OF PATHOLOGY AND GENOMIC MEDICINE INR 1.0 [facility] DEPARTMENT OF Comment: PATHOLOGY AND The International Normalized GENOMIC MEDICINE Ratio (INR) is a therapeutic monitoring tool for patients who are stable on oral anticoagulant therapy. An INR of 2.0-3.0 is suggested for deep vein thrombosis/pulmonary embolism. Specimen Blood Performing Organization Address [facility]/Zipcode Phone Number [facility] DEPARTMENT [facility] [place] [address] PATHOLOGY AND [employer] MEDICINE * CBC with platelet and differential (05/19/2018 9:25 AM CDT) WBC 6.00 4.50 - 11.00 k/uL [facility] DEPARTMENT OF PATHOLOGY AND GENOMIC MEDICINE RBC 3.80 (L) 4.40 - 6.00 m/uL [facility] DEPARTMENT OF PATHOLOGY AND GENOMIC MEDICINE HGB 11.9 (L) 14.0 - 18.0 g/dL [facility] DEPARTMENT OF PATHOLOGY AND GENOMIC MEDICINE HCT 35.3 (L) 41.0 - 51.0 % [facility] DEPARTMENT OF PATHOLOGY AND GENOMIC MEDICINE MCV 92.9 82.0 - 100.0 fL [facility] DEPARTMENT OF PATHOLOGY AND GENOMIC MEDICINE MCH 31.3 27.0 - 34.0 pg [facility] DEPARTMENT OF PATHOLOGY AND GENOMIC MEDICINE MCHC 33.7 31.0 - 37.0 g/dL [facility] DEPARTMENT OF PATHOLOGY AND GENOMIC MEDICINE RDW - SD 48.2 37.0 - 55.0 fL [facility] DEPARTMENT OF PATHOLOGY AND GENOMIC MEDICINE MPV 9.4 8.8 - 13.2 fL [facility] DEPARTMENT OF PATHOLOGY AND GENOMIC MEDICINE Platelet count 227 150 - 400 k/uL [facility] DEPARTMENT OF PATHOLOGY AND GENOMIC MEDICINE Nucleated RBC 0.00 /100 WBC [facility] DEPARTMENT OF PATHOLOGY AND GENOMIC MEDICINE Neutrophils 56.3 39.0 - 69.0 % [facility] DEPARTMENT OF PATHOLOGY AND GENOMIC MEDICINE Lymphocytes 22.3 (L) 25.0 - 45.0 % [facility] DEPARTMENT OF PATHOLOGY AND GENOMIC MEDICINE Monocytes 7.2 0.0 - 10.0 % [facility] DEPARTMENT OF PATHOLOGY AND GENOMIC MEDICINE Eosinophils 13.2 (H) 0.0 - 5.0 % [facility] DEPARTMENT OF PATHOLOGY AND GENOMIC MEDICINE Basophils 0.7 0.0 - 1.0 % [facility] DEPARTMENT OF PATHOLOGY AND GENOMIC MEDICINE Immature granulocytes 0.3Comment: "Immature 0.0 - 1.0 % [facility] DEPARTMENT OF granulocytes" (promyelocytes, PATHOLOGY AND myelocytes, metamyelocytes) GENOMIC MEDICINE Specimen Blood Performing Organization Address City/[facility] Cent[facility]ode Phone Number [address] [address] PATHOLOGY AND GENOMIC MEDICINE * ECG Pre/Post Op (05/19/2018 8:55 AM CDT) Ventricular rate 62 [facility] MUSE Atrial rate 62 [facility] MUSE QRSD interval 68 [facility] MUSE QT interval 392 [facility] MUSE QTC interval 397 [facility] MUSE QRS axis 1 -18 [facility] MUSE T wave axis 32 [facility] MUSE EKG impression Atrial-paced rhythm-Abnormal [facility] MUSE ECG-No previous ECGs available- Performing Organization Address City/[facility] Centercode Phone Number [facility] MUSE [address] [place] [address] * Estimated GFR (05/19/2018 8:55 AM CDT) GFR Non Af Amer 74 mL/min/1.73 m2 [facility] DEPARTMENT OF PATHOLOGY AND GENOMIC MEDICINE GFR Af Amer 89 mL/min/1.73 m2 [facility] DEPARTMENT OF Comment: PATHOLOGY AND Chronic [...] Americans. Specimen Plasma specimen Performing Organization Address [facility] Centercode Phone Number [address] [address] PATHOLOGY AND GENOMIC MEDICINE * Basic metabolic panel (05/19/2018 8:55 AM CDT) Sodium 140 135 - 148 mEq/L [facility] DEPARTMENT OF PATHOLOGY AND GENOMIC MEDICINE Potassium 5.1 (H) 3.5 - 5.0 mEq/L [facility] DEPARTMENT OF PATHOLOGY AND GENOMIC MEDICINE Chloride 105 98 - 112 mEq/L [facility] DEPARTMENT OF PATHOLOGY AND GENOMIC MEDICINE CO2 23 (L) 24 - 31 mEq/L [facility] DEPARTMENT OF PATHOLOGY AND GENOMIC MEDICINE Anion gap 12@ANIO 7 - 15 mEq/L [facility] DEPARTMENT OF PATHOLOGY AND GENOMIC MEDICINE BUN 24 (H) 8 - 23 mg/dL [facility] DEPARTMENT OF PATHOLOGY AND GENOMIC MEDICINE Creatinine 1.0 0.7 - 1.2 mg/dL [facility] DEPARTMENT OF PATHOLOGY AND GENOMIC MEDICINE Glucose 82 65 - 99 mg/dL [facility] DEPARTMENT OF PATHOLOGY AND GENOMIC MEDICINE Calcium 9.0 8.8 - 10.2 mg/dL [facility] DEPARTMENT OF PATHOLOGY AND GENOMIC MEDICINE Specimen Plasma specimen Performing Organization Address City/State/Zipcode Phone Number [facility] DEPARTMENT [facility] [place] [address] PATHOLOGY AND GENOMIC MEDICINE after 10/23/2017 Insurance Payer Benefit Subscriber ID Type Phone Address Plan / Group UHC MEDICARE UHC xxxxxxxxx O MEDICARE COMPLETE UHC MEDICARE UHC DUAL xxxxxxxxx O COMPLETE [facility] Advance Directives Patient has advance care planning documents on file. For more information, autumn carnes contact: Nilson Rivera [address] [place] [address]
[2018-10-24] MEDS ORDERED: MORPHINE SULFATE INJ 4 MG/ML INJ 1ML IV PRN (22:00)
[2018-10-24] MEDS ORDERED: HYDROCODONE/APAP 10MG-325MG TAB PO PRN (22:00)
--- NOTE | 2018-10-24 23:46 | NUR ---
PATIENT REMAINS ON BEDREST, PRESSURE DRESSING DRY AND INTACT TO THE LEFT GROIN WITHOUT BLEEDING OR HEMATOMA. HE DENIES PAIN, CALL LIGHT AND URINAL WITHIN EASY REACH.
[2018-10-25] VITALS: BP 95/50
--- NOTE | 2018-10-25 01:44 | NUR ---
PATIENT IS SOUNDLY ASLEEP, HE'S EASY TO AROUSE, NO RESPIRATORY DISTRESS OBSERVED. HIS BEDREST IS OVER, PRESSURE DRESSING REMAINS DRY AND INTACT TO THE LEFT GROIN WITHOUT BLEEDING OR HEMATOMA. CALL LIGHT WITHIN EASY REACH, INSTRUCTED TO CALL FOR ASSISTANCE UPON GETTING OUT OF THE BED.
[2018-10-25 04:00] VITALS: BP 91/55
[2018-10-25 05:48] LABS: BASOPHILS % 0.6 % (0.0-1.0); EOSINOPHILS # (AUTO) 0.8 (0.0-0.4); EOSINOPHILS % 11.1 % (0.0-6.0); HEMATOCRIT 34.4 % (38.2-49.6); HEMOGLOBIN 11.7 g/dL (14.0-18.0); LYMPHOCYTES # (AUTO) 1.8 (1.0-3.2); MEAN CORPUSCULAR HEMOGLOBIN 30.3 pg (28-32); MEAN CORPUSCULAR VOLUME 89.1 fL (81-99); MONOCYTES # (AUTO) 0.7 (0.2-0.8); MONOCYTES % 9.3 % (4.4-11.3); NEUTROPHILS # (AUTO) 3.8 (2.1-6.9); NEUTROPHILS % 53.9 % (38.7-80.0); PLATELET COUNT 198 x10e3/uL (140-360); RED BLOOD COUNT 3.86 x10e6/uL (4.3-5.7); RED CELL DISTRIBUTION WIDTH 15.8 % (11.7-14.4)
[2018-10-25 06:07] LABS: BLOOD UREA NITROGEN 22 mg/dL (7-26); BUN/CREATININE RATIO 25 (6-25); CALCIUM 8.2 mg/dL (8.4-10.2); CARBON DIOXIDE 22 mmol/L (22-29); CHLORIDE 107 mmol/L (98-107); CREATININE, SERUM 0.88 mg/dL (0.72-1.25); EST GLOMERULAR FILTRATION RATE > 60 ML/MIN (60-); GLUCOSE 77 mg/dL (74-118); SODIUM 134 mmol/L (136-145)
--- NOTE | 2018-10-25 07:05 | NUR ---
Walking rounds done. Patient denies any chest pain or SOB at this time. Left groin cath site intact, no bleeding or hematoma palpated. POC discussed. He was instructed to call for assistance and verbalized understanding. Bed in lowest position, locked and call moreno within reach.
[2018-10-25 08:00] VITALS: BP 112/62
[2018-10-25] MEDS ORDERED: METFORMIN HCL 500 MG TAB PO SCH (08:00)
[2018-10-25] MEDS ORDERED: PRAVASTATIN 20 MG TAB PO SCH (09:00)
[2018-10-25] MEDS ORDERED: TRAZODONE HCL 50 MG TAB PO SCH (09:00)
[2018-10-25] MEDS ORDERED: TICAGRELOR 90 MG TABLET PO SCH (09:00)
[2018-10-25] MEDS ORDERED: TAMSULOSIN HCL 0.4 MG CAP PO SCH (09:00)
[2018-10-25] MEDS ORDERED: FAMOTIDINE 20 MG TAB PO SCH (09:00)
[2018-10-25] MEDS ORDERED: JARDIANCE PO SCH (09:00)
[2018-10-25] MEDS ORDERED: LISINOPRIL 2.5 MG TAB PO SCH (09:00)
[2018-10-25] MEDS ORDERED: PREGABALIN 75 MG CAP PO SCH (09:00)
--- NOTE | 2018-10-25 09:00 | NUR ---
POST DISCHARGE STATUS FORM FILED IN FRONT OF CHART NO NEEDS RETURNING HOME.
--- NOTE | 2018-10-25 09:35 | NUR ---
Patient discharged home with written instructions. He verbalized understanding. IV dc'd intact and small dressing applied. Patient wheeled to own vehicle in stable condition.
--- NOTE | 2018-10-25 13:03 | NUR ---
SOCIAL WORK INITIAL ASSESSMENT Day Care Director to bedside to discuss plan of care with patient/family. CM/SW role and care transitions discussed. Anticipated discharge plan discussed along with duration of care. CM/SW discussed patients right to make decisions in care. CM/SW work hours given. Patient lives: IN APARTMENT BY SELF Admit/Transfer: VIA ED POA/Emergency contact: HUNG ROQUE Current/Previous Home Health: [facility] PCP/Follow-up Care: FABIEN Current/Previous DME: [facility] LEFT LEG PROTHESIS Other Services: NA Employment Status: RETIRED Areas of Concerns: NONE Referral Needs: NONE Education Needs: NONE IMM/LOYD given and signed (if applicable): NONE Goal for discharge: RETURN HOME CM/SW left business card at the bedside with contact information. Name and number was also written on the patients whiteboard. Patient verbalized understanding of discussion. CM will follow-up with ongoing discharge and transition of care needs.
[2018-10-25] MEDS ORDERED: LORATADINE 10 MG TAB PO SCH (17:00)
[2018-10-25] MEDS ORDERED: AMITRIPTYLINE HCL 25 MG TAB PO SCH (22:00)
--- NOTE | 2018-11-28 13:37 | Operative Report ---
DATE OF PROCEDURE: 10/24/2018 SURGEON: Angel Zavala MD INDICATIONS: Peripheral arterial disease. PROCEDURES PERFORMED: 1. Abdominal aortogram. 2. Selective catheter placed in the left femoral artery to right superficial femoral artery with third-order catheter placement, unilateral extremity angiogram. 3. Atherectomy and drug-coated balloon angioplasty of the right superficial femoral artery. 4. Secondary thrombectomy of the right superficial femoral artery. COMPLICATIONS: None. BLOOD LOSS: Minimal. RECOMMENDATIONS: Dual antiplatelet therapy for life. DESCRIPTION OF PROCEDURE: Access was obtained in the left femoral artery. A 6-Eritrean sheath was placed. 90% stenosis of the left common femoral artery was noted. Abdominal aortogram demonstrated mild disease of the abdominal aorta and iliacs bilaterally. The catheter was advanced from the left femoral artery to the right superficial femoral artery confirming 80% stenosis of the proximal and mid right superficial femoral artery with single-vessel runoff via the right anterior tibial artery. A decision was made to intervene on the right femoral artery. The patient received intravenous heparin and aspirin and Brilinta for anticoagulation. The orbital atherectomy of the right femoral artery using the CSI 2.0 mm [place] was performed. Large amounts of visible thrombus with manual aspiration thrombectomy was needed following which drug-coated balloon angioplasty with a 6 x 220 mm balloon. Excellent end results, less than 10% residual stenosis, single-vessel runoff. Left groin sheath removed under manual pressure. The patient was observed in the hospital. Angel Zavala MD KSB/MODL /[id number]
== END 2018-10-25 09:35 | disposition home or self-care (01) ==
LOC: CATH LAB 13:20 → IMCU 21:49
PROVIDERS: ADMIT Internal Medicine Interventional Cardiology; ATTEND Internal Medicine Interventional Cardiology
DX: E11.51 Type 2 diabetes mellitus with diabetic peripheral angiopathy without gangrene (principal); J44.9 Chronic obstructive pulmonary disease, unspecified; I10 Essential (primary) hypertension; Z79.4 Long term (current) use of insulin; Z82.49 Family history of ischemic heart disease and other diseases of the circulatory system
CPT/HCPCS: 36415 ×3; 37186; 37225; 75625; 80048; 80053; 80061; 82948; 85025 ×2; 85347; 85610; C1724; C1769 ×2; C1887; C2623; G0378 ×2; J1644; J2001; J2250; J2720; J7030; Q9967; 36247; 75710

== ENCOUNTER 2019-02-06 18:59 | Inpatient (IN) | payer MEDICARE ==
[~2019-02-06] VITALS: Ht 170.2 cm; Wt 64.6 kg
[~2019-02-06 18:59] MED LIST changes: +AMITRIPTYLINE H25 MG PO; +BRILINTA90 MG PO; +FAMOTIDINE20 MG PO; +HYDROCODON-ACE1 EAC9 PO; -IOPAMIDOL 370 MG/ML 200 ML INFUS..BTL INJ ONE; +JARDIANCE PO; +LEVOCETIRIZINE D5 MG PO; +LISINOPRIL2.5 MG PO; +LYRICA75 MG PO; +METFORMIN HCL500 MG PO; +PRAVASTATIN SOD40 MG PO; -SODIUM CHLORIDE 0.9% 50ML 50 ML ONE; +TAMSULOSIN HCL0.4 MG PO; +TRAZODONE HCL50 MG PO
--- OUTSIDE RECORDS SUMMARY | 2019-02-06 19:01 | XMS REPORT | Clinical Summary ---
Author Author [facility] Organization [facility] Address Unknown Phone Unavailable Care Team Providers Care Racing Manager Name Role Phone Asked, No Pcp PCP [...] Ontiveros MD Aortagram abdomen w run off [14800 (CPT)] 05/19/2018 Surgery Procedural Cardiology Antonino Ontiveros MD PAD (peripheral artery disease); Claudication, class II 05/19/2018 Hospital Procedural Cardiology Encounter Antonino Ontiveros MD 05/19/2018 Orders Only Cardiology after 02/05/2018 Social History Date Tobacco Use Types Packs/Day [...] (peripheral artery PERIPHERAL 5:21 PM CDT disease) ([facility]) Claudication, class II (HCC) AORTAGRAM ABDOMEN WITH Routine 05/19/2018 PAD (peripheral artery RUN OFF 5:21 PM CDT disease) ([facility]) Claudication, class II (HCC) PARTIAL THROMBOPLASTIN STAT [...] GLUCOSE Routine 05/19/2018 8:49 AM CDT after 02/05/2018 Results * POC glucose (05/19/2018 5:52 PM CDT) Only the most recent of 2 results within the time period is included. POC glucose 77 65 - 99 mg/dL [facility] DEPARTMENT Comment: OF PATHOLOGY Meter ID: [id number] AND GENOMIC Health Science Writer: Chalino Tania [facility] Specimen Performing Organization Address [facility]/Zipcode Phone Number [facility] [place] [address] PATHOLOGY AND GENOMIC MEDICINE * Cv lab head procedure (05/19/2018 5:21 PM CDT) Specimen Narrative Performed At [facility] Procedure:1.Selective abdominal aortogram 2.Selective bilateral lower extremities angiograms Indication:Resting claudication with abnormal non-invasive vascular study Ischemic limb s/p unilateral amputation Procedure:Please refer to CV lab head procedure dicumentation Results: 1.No significant stenosis or aneurysmal dilatation in the abdominal aortic distribution 2.Significant bilateral obstructive peripheral arterial disease Performing Organization Address [facility]ode Phone Number [address] [address] * Partial thromboplastin time, activated (05/19/2018 9:25 AM CDT) PTT 31.9 23.0 - 36.0 sec [facility] DEPARTMENT Comment: OF PATHOLOGY PTT therapeutic range for AND GENOMIC unfractionated heparin is MEDICINE 61.0-112.0 seconds which corresponds to Anti-Xa 0.3-0.7 U/ml. Specimen Blood Performing Organization Address [facility]/Zipcode Phone Number [facility] DEPARTMENT [address] [address] PATHOLOGY AND GENOMIC MEDICINE * Prothrombin time with INR (05/19/2018 9:25 AM CDT) Prothrombin 13.4 12.0 - 15.0 sec [facility] DEPARTMENT time OF PATHOLOGY AND GENOMIC MEDICINE INR 1.0 [facility] DEPARTMENT Comment: OF PATHOLOGY The International Normalized AND GENOMIC Ratio (INR) is a therapeutic MEDICINE monitoring tool for patients who are stable on oral anticoagulant therapy. An INR of 2.0-3.0 is suggested for deep vein thrombosis/pulmonary embolism. Specimen Blood Performing Organization Address [facility]/Zipcode Phone Number [facility] DEPARTMENT [address] [address] PATHOLOGY AND GENOMIC MEDICINE * CBC with platelet and differential (05/19/2018 9:25 AM CDT) WBC 6.00 4.50 - 11.00 k/uL [facility] DEPARTMENT OF PATHOLOGY AND GENOMIC MEDICINE RBC 3.80 (L) 4.40 - 6.00 m/uL [facility] DEPARTMENT OF PATHOLOGY AND GENOMIC MEDICINE HGB 11.9 (L) 14.0 - 18.0 g/dL [facility] DEPARTMENT OF PATHOLOGY AND GENOMIC MEDICINE HCT 35.3 (L) 41.0 - 51.0 % [facility] DEPARTMENT OF PATHOLOGY AND GENOMIC MEDICINE MCV 92.9 82.0 - 100.0 fL [facility] DEPARTMENT OF PATHOLOGY AND GENOMIC MEDICINE MCH 31.3 27.0 - 34.0 pg [facility] DEPARTMENT OF PATHOLOGY AND GENOMIC MEDICINE MCHC 33.7 31.0 - 37.0 g/dL [facility] DEPARTMENT OF PATHOLOGY AND GENOMIC MEDICINE RDW - SD 48.2 37.0 - 55.0 fL [facility] DEPARTMENT OF PATHOLOGY AND GENOMIC MEDICINE MPV 9.4 8.8 - 13.2 fL [facility] DEPARTMENT OF PATHOLOGY AND GENOMIC MEDICINE Platelet count 227 150 - 400 k/uL [facility] DEPARTMENT OF PATHOLOGY AND GENOMIC MEDICINE Nucleated RBC 0.00 /100 WBC [facility] DEPARTMENT OF PATHOLOGY AND GENOMIC MEDICINE Neutrophils 56.3 39.0 - 69.0 % [facility] DEPARTMENT OF PATHOLOGY AND GENOMIC MEDICINE Lymphocytes 22.3 (L) 25.0 - 45.0 % [facility] DEPARTMENT OF PATHOLOGY AND GENOMIC MEDICINE Monocytes 7.2 0.0 - 10.0 % [facility] DEPARTMENT OF PATHOLOGY AND GENOMIC MEDICINE Eosinophils 13.2 (H) 0.0 - 5.0 % [facility] DEPARTMENT OF PATHOLOGY AND GENOMIC MEDICINE Basophils 0.7 0.0 - 1.0 % [facility] DEPARTMENT OF PATHOLOGY AND GENOMIC MEDICINE Immature 0.3Comment: "Immature 0.0 - 1.0 % [facility] DEPARTMENT granulocytes granulocytes" (promyelocytes, OF PATHOLOGY myelocytes, metamyelocytes) AND GENOMIC MEDICINE Specimen Blood Performing Organization Address City/State/[facility] Cent[facility]ode Phone Number [facility] DEPARTMENT OF [address] [place] [address] PATHOLOGY AND GENOMIC MEDICINE * ECG Pre/Post Op (05/19/2018 8:55 AM CDT) Ventricular 62 [facility] MUSE rate Atrial rate 62 [facility] MUSE QRSD interval 68 [facility] MUSE QT interval 392 [facility] MUSE QTC interval 397 [facility] MUSE QRS axis 1 -18 [facility] MUSE T wave axis 32 [facility] MUSE EKG impression Atrial-paced rhythm-Abnormal [facility] MUSE ECG-No previous ECGs available- Specimen Performing Organization Address City/State/Zipcode Phone Number [facility] MUSE [address] [place] [address] * Estimated GFR (05/19/2018 8:55 AM CDT) [facility] GFR Non Af Amer 74 mL/min/1.73 m2 [facility] DEPARTMENT OF PATHOLOGY AND GENOMIC MEDICINE GFR Af Amer 89 mL/min/1.73 m2 [facility] DEPARTMENT Comment: OF PATHOLOGY Chronic kidney disease: <60 AND GENOMIC mL/min/1.73m2 MEDICINE Kidney failure: <15 mL/min/1.73m2 The estimated GFR [...] Americans. Specimen Plasma specimen Performing Organization Address [facility] Centercode Phone Number [place] [phone] PATHOLOGY AND [facility] MEDICINE * Basic metabolic panel (05/19/2018 8:55 AM CDT) [facility] Sodium 140 135 - 148 mEq/L [facility] DEPARTMENT OF PATHOLOGY AND GENOMIC MEDICINE Potassium 5.1 (H) 3.5 - 5.0 mEq/L [facility] DEPARTMENT OF PATHOLOGY AND GENOMIC MEDICINE Chloride 105 98 - 112 mEq/L [facility] DEPARTMENT OF PATHOLOGY AND GENOMIC MEDICINE CO2 23 (L) 24 - 31 mEq/L [facility] DEPARTMENT OF PATHOLOGY AND GENOMIC MEDICINE Anion gap 12@ANIO 7 - 15 mEq/L [facility] DEPARTMENT OF PATHOLOGY AND GENOMIC MEDICINE BUN 24 (H) 8 - 23 mg/dL [facility] DEPARTMENT OF PATHOLOGY AND GENOMIC MEDICINE Creatinine 1.0 0.7 - 1.2 mg/dL [facility] DEPARTMENT OF PATHOLOGY AND GENOMIC MEDICINE Glucose 82 65 - 99 mg/dL [facility] DEPARTMENT OF PATHOLOGY AND GENOMIC MEDICINE Calcium 9.0 8.8 - 10.2 mg/dL [facility] DEPARTMENT OF PATHOLOGY AND GENOMIC MEDICINE Specimen Plasma specimen Performing Organization Address City/State/Zipcode Phone Number [address] [address] PATHOLOGY AND GENOMIC MEDICINE after 02/05/2018 Insurance Type Payer Benefit Subscriber ID Effective Phone Address Plan / Dates Group O UHC MEDICARE UHC xxxxxxxxx 2017-P MEDICARE resent HMO/PPO O UHC MEDICARE UHC DUAL xxxxxxxxx 2017-P COMPLETE resent [facility] Advance Directives Patient has advance care planning documents on file. For more information, autumn carnes contact: Nilson Rivera [address] [place] [address]
[2019-02-06 21:23] LABS: BASOPHILS % 0.4 % (0.0-1.0); EOSINOPHILS # (AUTO) 0.4 (0.0-0.4); HEMATOCRIT 22.7 % (38.2-49.6); HEMOGLOBIN 7.9 g/dL (14.0-18.0); LYMPHOCYTES # (AUTO) 1.3 (1.0-3.2); MEAN CORPUSCULAR HGB CONC 34.8 g/dL (31-35); MONOCYTES # (AUTO) 0.4 (0.2-0.8); MONOCYTES % 8.6 % (4.4-11.3); NEUTROPHILS % 58.6 % (38.7-80.0); PLATELET COUNT 121 x10e3/uL (140-360); RED BLOOD COUNT 2.55 x10e6/uL (4.3-5.7)
--- NOTE | 2019-02-06 21:33 | Diagnostic Imaging Report ---
EXAMINATION: CHEST SINGLE (NOT PORTABLE) COMPARISON: None INDICATION: Shortness of breath ^SOB ^Y DISCUSSION: Frontal view of the chest obtained at 2109 hours. HEART AND MEDIASTINUM: The heart is normal in size. The aortic arch is mildly tortuous LINES: Dual-lead pacemaker wires terminate in the right atrium and right ventricle. LUNGS: The lungs are mildly hyperinflated. No pneumonia or pulmonary edema. PLEURA: No pleural effusion or pneumothorax. BONES AND SOFT TISSUES: No focal osseous lesion. The soft tissues are normal. IMPRESSION: Mild pulmonary hyperinflation congestive of small airways disease. No acute cardiopulmonary process. Signed by: Dr. Jackie Deleon MD on 02/06/2019 9:29 PM
[2019-02-06 21:38] LABS: ALANINE AMINOTRANSFERASE 13 IU/L (0-55); ALBUMIN/GLOBULIN RATIO 1.3 (0.8-2.0); ALKALINE PHOSPHATASE 127 IU/L (40-150); ANION GAP 12.8 mmol/L (8-16); BLOOD UREA NITROGEN 30 mg/dL (7-26); BUN/CREATININE RATIO 32 (6-25); CALCIUM 9.6 mg/dL (8.4-10.2); CARBON DIOXIDE 20 mmol/L (22-29); CHLORIDE 108 mmol/L (98-107); CREATINE KINASE 62 IU/L (30-200); CREATININE, SERUM 0.93 mg/dL (0.72-1.25); EST GLOMERULAR FILTRATION RATE > 60 ML/MIN (60-); GLUCOSE 93 mg/dL (74-118); POTASSIUM 3.8 mmol/L (3.5-5.1); SODIUM 137 mmol/L (136-145)
[2019-02-06] MEDS ORDERED: BRILINTA90 MG PO (23:12)
[2019-02-06] MEDS ORDERED: TRAZODONE HCL50 MG PO (23:14)
[2019-02-06] MEDS ORDERED: JARDIANCE PO (23:14)
[2019-02-06] MEDS ORDERED: AMITRIPTYLINE H50 MG PO (23:14)
[2019-02-06] MEDS ORDERED: VASCEPA PO (23:15)
[2019-02-06] MEDS ORDERED: ONDANSETRON HCL INJ 2MG/ML 2ML 2 MG/ML VIAL IV PRN (23:15)
[2019-02-06] MEDS ORDERED: SODIUM CHLORIDE 0.9% 250ML 250 ML IV ONE (23:15)
[2019-02-06] MEDS ORDERED: METFORMIN HCL500 MG PO (23:16)
[2019-02-06] MEDS ORDERED: NORCO 10-325 T1 EACH PO (23:17)
[2019-02-06] MEDS ORDERED: LISINOPRIL2.5 MG PO (23:17)
[2019-02-06] MEDS ORDERED: TYLENOL # 31 EA PO (23:17)
[2019-02-06] MEDS ORDERED: LYRICA75 MG PO (23:18)
[2019-02-06] MEDS ORDERED: PRAVASTATIN SOD40 MG PO (23:20)
[2019-02-06] MEDS ORDERED: TAMSULOSIN PO (23:20)
--- OUTSIDE RECORDS SUMMARY | 2019-02-06 23:21 | XMS REPORT | Clinical Summary ---
Author Author [facility] Organization [facility] Address Unknown Phone Unavailable Care Team Providers Care Camera Supervisor Name Role Phone Asked, No Pcp PCP [...] Ontiveros MD Aortagram abdomen w run off [[id number] (CPT)] 05/19/2018 Surgery Procedural Cardiology Antonino Ontiveros [...] (peripheral artery PERIPHERAL 5:21 PM CDT disease) ([facility]) Claudication, class II (HCC) AORTAGRAM ABDOMEN WITH Routine 05/19/2018 PAD (peripheral artery RUN OFF 5:21 PM CDT disease) ([facility]) Claudication, class II (HCC) PARTIAL THROMBOPLASTIN STAT [...] POC glucose 77 65 - 99 mg/dL [facility] DEPART[facility] Comment: OF PATHOLOGY Meter ID: [id number] AND GENOMIC Blurb Writer: Chalino Tania [facility] Specimen Performing Organization Address [facility]/Zipcode Phone Number [facility] [place] [address] PATHOLOGY AND GENOMIC MEDICINE * Cv collaborative physician procedure (05/19/2018 5:21 PM CDT) Specimen Narrative Performed At [facility] Procedure:1.Selective abdominal aortogram 2.Selective bilateral lower extremities angiograms Indication:Resting claudication with abnormal non-invasive vascular study Ischemic limb s/p unilateral amputation Procedure:Please refer to CV collaborative physician procedure dicumentation Results: 1.No significant stenosis or aneurysmal dilatation in the abdominal aortic distribution 2.Significant bilateral obstructive peripheral arterial disease Performing Organization Address [facility] Cent[facility]ode Phone Number [address] [address] * Partial thromboplastin time, activated (05/19/2018 9:25 AM CDT) PTT 31.9 23.0 - 36.0 sec [facility] DEPART[facility] Comment: OF PATHOLOGY PTT therapeutic range for AND GENOMIC unfractionated heparin is MEDICINE 61.0-112.0 seconds which corresponds to Anti-Xa 0.3-0.7 U/ml. Specimen Blood Performing Organization Address [facility]/Zipcode Phone Number [facility] DEPART[facility] [address] [address] PATHOLOGY AND GENOMIC MEDICINE * Prothrombin time with INR (05/19/2018 9:25 AM CDT) Prothrombin 13.4 12.0 - 15.0 sec [facility] DE[facility] time OF PATHOLOGY AND GENOMIC MEDICINE INR 1.0 [facility] DEPART[facility] Comment: OF PATHOLOGY The International Normalized AND GENOMIC Ratio (INR) is a therapeutic MEDICINE monitoring tool for patients who are stable on oral anticoagulant therapy. An INR of 2.0-3.0 is suggested for deep vein thrombosis/pulmonary embolism. Specimen Blood Performing Organization Address [facility]/Zipcode Phone Number [facility] DEPART[facility] [address] [address] PATHOLOGY AND GENOMIC MEDICINE * CBC with platelet and differential (05/19/2018 9:25 AM CDT) WBC 6.00 4.50 - 11.00 k/uL [facility] DEPART[facility] OF PATHOLOGY AND GENOMIC MEDICINE RBC 3.80 (L) 4.40 - 6.00 m/uL [facility] DE[facility] OF PATHOLOGY AND GENOMIC MEDICINE HGB 11.9 (L) 14.0 - 18.0 g/dL [facility] DEPARTMENT OF PATHOLOGY AND GENOMIC MEDICINE HCT 35.3 (L) 41.0 - 51.0 % [facility] DEPART[facility] OF PATHOLOGY AND GENOMIC MEDICINE MCV 92.9 82.0 - 100.0 fL [facility] DEPART[facility] OF PATHOLOGY AND GENOMIC MEDICINE MCH 31.3 27.0 - 34.0 pg [facility] DEPART[facility] OF PATHOLOGY AND GENOMIC MEDICINE MCHC 33.7 31.0 - 37.0 g/dL [facility] DEPARTMENT OF PATHOLOGY AND GENOMIC MEDICINE RDW - SD 48.2 37.0 - 55.0 fL [facility] DEPART[facility] OF PATHOLOGY AND GENOMIC MEDICINE MPV 9.4 8.8 - 13.2 fL [facility] DEPART[facility] OF PATHOLOGY AND GENOMIC MEDICINE Platelet count 227 150 - 400 k/uL [facility] DEPARTMENT OF PATHOLOGY AND GENOMIC MEDICINE Nucleated RBC 0.00 /100 WBC [facility] DEPARTMENT OF PATHOLOGY AND GENOMIC MEDICINE Neutrophils 56.3 39.0 - 69.0 % [facility] DE[facility] OF PATHOLOGY AND GENOMIC MEDICINE Lymphocytes 22.3 (L) 25.0 - 45.0 % [facility] DEPARTMENT OF PATHOLOGY AND GENOMIC MEDICINE Monocytes 7.2 0.0 - 10.0 % [facility] DEPARTMENT OF PATHOLOGY AND GENOMIC MEDICINE Eosinophils 13.2 (H) 0.0 - 5.0 % [facility] DEPARTMENT OF PATHOLOGY AND GENOMIC MEDICINE Basophils 0.7 0.0 - 1.0 % [facility] DE[facility]MENT OF PATHOLOGY AND GENOMIC MEDICINE Immature 0.3Comment: "Immature 0.0 - 1.0 % [facility] DEPART[facility] granulocytes granulocytes" (promyelocytes, OF PATHOLOGY myelocytes, metamyelocytes) AND GENOMIC MEDICINE Specimen Blood Performing Organization Address City/State/[facility]ode Phone Number [facility] DEPARTMENT OF [address] [place] [address] PATHOLOGY AND GENOMIC MEDICINE * ECG Pre/Post Op (05/19/2018 8:55 AM CDT) Ventricular 62 [facility] rate Atrial rate 62 [facility] QRSD interval 68 [facility] QT interval 392 [facility] QTC interval 397 [facility] QRS axis 1 -18 [facility] T wave axis 32 [facility] EKG impression Atrial-paced rhythm-Abnormal [facility] ECG-No previous ECGs available- Specimen Performing Organization Address City/State/Zipcode Phone Number [facility] M[facility] [address] [place] [address] * Estimated GFR (05/19/2018 8:55 AM CDT) [facility] GFR Non Af Amer 74 mL/min/1.73 m2 [facility] DEPARTMENT OF PATHOLOGY AND GENOMIC MEDICINE GFR Af Amer 89 mL/min/1.73 m2 [facility] DEPART[facility] Comment: OF PATHOLOGY Chronic kidney disease: [...] Americans. Specimen Plasma specimen Performing Organization Address [facility] Centercode Phone Number [place] [phone] PATHOLOGY AND [facility] MEDICINE * Basic metabolic panel (05/19/2018 8:55 AM CDT) [facility] Sodium 140 135 - 148 mEq/L [facility] DEPARTMENT OF PATHOLOGY AND GENOMIC MEDICINE Potassium 5.1 (H) 3.5 - 5.0 mEq/L [facility] DEPARTMENT OF PATHOLOGY AND GENOMIC MEDICINE Chloride 105 98 - 112 mEq/L [facility] DEPARTMENT OF PATHOLOGY AND GENOMIC MEDICINE CO2 23 (L) 24 - 31 mEq/L [facility] DEPARTMENT OF PATHOLOGY AND GENOMIC MEDICINE Anion gap 12@ANIO 7 - 15 mEq/L [facility] DEPARTMENT OF PATHOLOGY AND GENOMIC MEDICINE BUN 24 (H) 8 - 23 mg/dL [facility] DEPARTMENT OF PATHOLOGY AND GENOMIC MEDICINE Creatinine 1.0 0.7 - 1.2 mg/dL [facility] DEPARTMENT OF PATHOLOGY AND GENOMIC MEDICINE Glucose 82 65 - 99 mg/dL [facility] DEPARTMENT OF PATHOLOGY AND GENOMIC MEDICINE Calcium 9.0 8.8 - 10.2 mg/dL [facility] DEPARTMENT OF PATHOLOGY AND GENOMIC MEDICINE Specimen Plasma specimen Performing Organization Address City/State/Zipcode Phone Number [address] [address] PATHOLOGY AND GENOMIC MEDICINE after 02/05/2018 Insurance Type Payer Benefit Subscriber ID Effective Phone Address Plan / Dates Group O UHC MEDICARE UHC xxxxxxxxx 2017-P MEDICARE resent HMO/PPO O UHC MEDICARE UHC DUAL xxxxxxxxx 2017-P COMPLETE resent [facility] Advance Directives Patient has advance care planning documents on file. For more information, autumn carnes contact: Nilson Rivera [address] [place] [address]
[2019-02-06] MEDS: SODIUM CHLORIDE 0.9% 1000ML 1,000 ML IV SCH (23:25)
[2019-02-06] MEDS: PANTOPRAZOLE 40 MG 10ML VIAL IV SCH (23:29)
[2019-02-06] MEDS ORDERED: DEXTROSE 50% SYRINGE 50 ML IV PRN (23:30)
--- NOTE | 2019-02-06 23:36 | NUR ---
CONSENT OBTAINED FOR BLOOD PRODUCTS
[2019-02-06 23:49] LABS: INR 0.96; PROTHROMBIN TIME 13.3 seconds (11.9-14.5)
--- NOTE | 2019-02-06 23:49 | NUR ---
PT PLACED ON TELE BOX 19
[2019-02-07] VITALS (8 sets, daily range): BP systolic 105–143; BP diastolic 59–83
--- NOTE | 2019-02-07 00:10 | NUR ---
Received patient from ER per stretcher, alert, not in distress, with ongoing IV fluids, on NPO maintained, patient aware. Call light within easy reach, bed is in low position and locked, bed alarm activated, urinal provided. Will continue to monitor closely
--- NOTE | 2019-02-07 00:55 | NUR ---
pink tube for re-typing sent to the lab
--- NOTE | 2019-02-07 01:30 | NUR ---
Dr. Cliff Handy aware of consult
--- NOTE | 2019-02-07 02:34 | NUR ---
ordered EGD, Farooq Darby informed
[2019-02-07] MEDS: INSULIN REGULAR, HUMAN 100 UNIT/1 ML 3ML VIAL SQ SCH ×4 (05:58→18:14)
--- NOTE | 2019-02-07 06:15 | NUR ---
Dr. Raheem preston, seen patient
[2019-02-07] MEDS: SODIUM CHLORIDE 0.9% 1000ML 1,000 ML IV SCH ×3 (07:12→23:12)
[2019-02-07] MEDS ORDERED: SODIUM CHLORIDE 0.9% 250ML 250 ML ONE (09:07)
[2019-02-07] MEDS: PANTOPRAZOLE 40 MG 10ML VIAL IV SCH ×2 (09:12→17:09)
[2019-02-07] MEDS ORDERED: MIDAZOLAM HCL 2 MG/2 ML VIAL ONE (13:42)
[2019-02-07] MEDS ORDERED: FENTANYL CITRATE/PF 100MCG/2 ML INJ ONE (13:42)
--- NOTE | 2019-02-07 14:09 | History and Physical ---
REASON FOR ADMISSION: A 73-year-old male with a history of diabetes mellitus, history of hypertension, anxiety, and reflux esophagitis and history of ulcer in the past, comes in with dyspnea and anxiety. HISTORY OF PRESENT ILLNESS: The patient is a 73-year-old male with a history of diabetes, in usual state of health until about 3 days prior to admission the patient noticed that his stools were getting black and had some melenic stools. The patient also noticed dyspnea with exertion and the patient also had increased anxiety along with this, came into the emergency room, was found to have symptomatic anemia and blood loss anemia. PAST MEDICAL HISTORY: History of hypertension, history of constipation, history of iron deficiency anemia, history of BPH, history of diabetes mellitus, and history of reflux esophagitis and also incontinence. MEDICINES: Amitriptyline 50 mg, hydrocodone 10/325, lisinopril 2.5, metformin 500 mg, pravastatin 40 mg, Lyrica 75 mg, trazodone 50 mg, Jardiance 10 mg, tamsulosin . PAST SURGICAL HISTORY: Includes history of left BKA for diabetic complications, history of cardiac stents, pacemaker, AICD, and hernia repair. ALLERGIES: NO KNOWN ALLERGIES NOTED. SOCIAL HISTORY: Positive for smoking in the past. Currently nonsmoker. No EtOH. No IV drug abuse. The patient also takes chronic pain medications, Ell[place] 10/325 on a daily basis secondary to pain in the stump and sees the Pain Management. REVIEW OF SYSTEMS: Negative for chest pain. Positive for shortness of breath. Positive for melenic stools. No nausea, no vomiting. Possible constipation. No diarrhea. No diplopia and no blurry vision either. PHYSICAL EXAMINATION: VITAL SIGNS: Temperature is 97, pulse of 87, blood pressure is 152/80, pulse oximetry of 99%. HEENT: Normocephalic, atraumatic. Pallor is positive. CVS: S1, S2. Regular. ABDOMEN: Nontender, nondistended. NECK: No JVD present. RESPIRATIONS: Good air entry in all lung velasco. ABDOMEN: Soft, nontender. No epigastric tenderness present. BACK: No CVA tenderness. SKIN: Normal. EXTREMITIES: Left BKA. Otherwise, decreased pulses in the right lower extremity. NEUROLOGIC: Alert and oriented x3. No altered mental status and patient has no focal weakness or deficits noted. LABORATORY DATA: initial white count is 5.13, hemoglobin of 7.9, hematocrit 22.7. Chemistries; sodium was 137, BUN was 30 with an estimated GFR of 60. Troponins were less than 0.01. Coags were normal. IMAGING STUDIES: Chest x-ray shows mild pulmonary hyperinflation, congestion of small airway disease, no acute cardiopulmonary active disease. ASSESSMENT: Acute upper GI bleed. The patient has been getting 1 unit of PRBCs. The patient's EKG was within normal limits. Plan is to do EGD and also check for iron levels. PLAN: Plan is to do endoscopy. Transfusion has been done. Dyspnea on exertion, we will also continue monitoring his O2 levels. Check iron levels again and further recommendation per clinical course. Medicines for his anxiety will be started after EGD. MD MARCOS Bartlett/SUGARL /[id number]
[2019-02-07 14:14] LABS: BASOPHILS % 0.5 % (0.0-1.0); EOSINOPHILS # (AUTO) 0.4 (0.0-0.4); EOSINOPHILS % 5.1 % (0.0-6.0); HEMOGLOBIN 15.3 g/dL (14.0-18.0); LYMPHOCYTES # (AUTO) 1.8 (1.0-3.2); LYMPHOCYTES % 22.2 % (18.0-39.1); MEAN CORPUSCULAR HEMOGLOBIN 30.7 pg (28-32); MEAN CORPUSCULAR HGB CONC 35.6 g/dL (31-35); MEAN CORPUSCULAR VOLUME 86.3 fL (81-99); MONOCYTES # (AUTO) 0.7 (0.2-0.8); MONOCYTES % 7.8 % (4.4-11.3); NEUTROPHILS # (AUTO) 5.3 (2.1-6.9); PLATELET COUNT 181 x10e3/uL (140-360); RED BLOOD COUNT 4.98 x10e6/uL (4.3-5.7); RED CELL DISTRIBUTION WIDTH 14.9 % (11.7-14.4)
[2019-02-07 14:41] LABS: ALANINE AMINOTRANSFERASE 13 IU/L (0-55); ALBUMIN 3.9 g/dL (3.5-5.0); ALBUMIN/GLOBULIN RATIO 1.3 (0.8-2.0); ALKALINE PHOSPHATASE 130 IU/L (40-150); ANION GAP 12.9 mmol/L (8-16); BLOOD UREA NITROGEN 30 mg/dL (7-26); BUN/CREATININE RATIO 34 (6-25); CALCIUM 9.5 mg/dL (8.4-10.2); CARBON DIOXIDE 20 mmol/L (22-29); CHLORIDE 107 mmol/L (98-107); CREATININE, SERUM 0.88 mg/dL (0.72-1.25); EST GLOMERULAR FILTRATION RATE > 60 ML/MIN (60-); GLUCOSE 76 mg/dL (74-118); POTASSIUM 3.9 mmol/L (3.5-5.1); SODIUM 136 mmol/L (136-145)
[2019-02-07 14:56] LABS: % IRON SATURATION 69 % (15-50); IRON 264 ug/dL (65-175); TOTAL IRON BINDING CAPACITY 384 ug/dL (261-478); TRANSFERRIN 274 mg/dL (174-364)
--- NOTE | 2019-02-07 15:55 | NUR ---
PT TO OR AT THIS TIME FOR PROCEDURE VIA BED.
[2019-02-07] MEDS ORDERED: PROPOFOL IV EMULSION 10 MG/ML 20 ML VIAL ONE (17:30)
--- NOTE | 2019-02-07 19:17 | NUR ---
WALKING ROUNDS PERFORMED, RECEIVED PT LAYING SEMI FOWLERS IN BED, AAOX3, RR EVEN AND NON-LABORED, ON RA. NO S/SX OF DISTRESS NOTED. OLD (L) BKA NOTED WITH PROSTHETIC AT BEDSIDE. LEFT PT LAYING SEMI FOWLERS IN BED, BED IN LOW LOCKED POSITION, SIDE RAILS UPX2, CALL LIGHT AND PHONE WITHIN REACH.
--- NOTE | 2019-02-07 20:09 | NUR ---
paged Dr. Maciel for sleeping medications per patients request. Spoke to [place] answering service.
--- NOTE | 2019-02-07 20:14 | NUR ---
Dr. Maciel returned call ordered 0.5 Ativan PRN for sleep
[2019-02-07] MEDS ORDERED: LORAZEPAM 0.5 MG TAB PO PRN (21:00)
[2019-02-08] MEDS: SODIUM CHLORIDE 0.9% 1000ML 1,000 ML IV SCH ×3 (02:10→15:12)
--- NOTE | 2019-02-08 02:17 | Operative Report ---
DATE OF PROCEDURE: 02/07/2019 SURGEON: Bradley Handy MD PROCEDURE: EGD with biopsies. INDICATIONS FOR EGD: Anemia, history of melena, upper abdominal pain. MEDICATIONS: The patient was done under MAC, please see anesthesiologist's note. PROCEDURE IN DETAIL: With the patient in left lateral decubitus position, flexible fiberoptic Olympus gastroscope was introduced into the esophagus under direct visualization without any difficulty. There was some patchy erythema noted in distal esophagus. The scope was then advanced with ease into the stomach traversing a small hiatal hernia. The mucosa overlying the antrum revealed some diffuse intense erythema and moderate edema and biopsies were obtained and sent to stain for H pylori. The mucosa overlying the distal body and the proximal antrum appeared somewhat atrophic. The biopsies were obtained to rule out atrophic gastritis. Pylorus was of normal contour and shape, was intubated with ease and the scope was advanced all the way to the second portion of the duodenum. The scope was then withdrawn slowly. Mucosa overlying the proximal second portion and duodenal bulb appeared to be within normal limits. The scope was then withdrawn back into the stomach and retroflexed and mucosa overlying the fundus and cardia appeared to be within normal limits. The scope was then straightened out, it was subsequently withdrawn. The patient tolerated the procedure well. IMPRESSION: 1. Distal esophagitis. 2. Small sliding hiatal hernia. 3. Gastritis, biopsied. Biopsies sent to stain for H pylori. PLAN: Follow up histology. Continue PPI therapy. Findings do not necessarily explain the patient's anemia or blood loss. We will proceed with a GI bleed scan. If negative, then a colonoscopy will be in order. Bradley Handy MD [facility]/[place]ARL /[id number] cc: Avelino Maciel MD
[2019-02-08 04:30] VITALS: BP 116/68
[2019-02-08] MEDS: INSULIN REGULAR, HUMAN 100 UNIT/1 ML 3ML VIAL SQ SCH ×4 (06:00→17:53)
[2019-02-08 06:12] LABS: BASOPHILS % 0.5 % (0.0-1.0); EOSINOPHILS # (AUTO) 0.6 (0.0-0.4); EOSINOPHILS % 8.5 % (0.0-6.0); HEMATOCRIT 39.2 % (38.2-49.6); HEMOGLOBIN 14.1 g/dL (14.0-18.0); LYMPHOCYTES # (AUTO) 1.7 (1.0-3.2); LYMPHOCYTES % 26.9 % (18.0-39.1); MEAN CORPUSCULAR VOLUME 86.2 fL (81-99); MONOCYTES # (AUTO) 0.6 (0.2-0.8); NEUTROPHILS # (AUTO) 3.5 (2.1-6.9); NEUTROPHILS % 54.8 % (38.7-80.0); PLATELET COUNT 172 x10e3/uL (140-360); RED BLOOD COUNT 4.55 x10e6/uL (4.3-5.7); RED CELL DISTRIBUTION WIDTH 15.1 % (11.7-14.4)
[2019-02-08 06:18] LABS: ANION GAP 9.7 mmol/L (8-16); BLOOD UREA NITROGEN 21 mg/dL (7-26); BUN/CREATININE RATIO 26 (6-25); CALCIUM 8.5 mg/dL (8.4-10.2); CARBON DIOXIDE 20 mmol/L (22-29); CHLORIDE 108 mmol/L (98-107); EST GLOMERULAR FILTRATION RATE > 60 ML/MIN (60-); GLUCOSE 69 mg/dL (74-118); POTASSIUM 3.7 mmol/L (3.5-5.1); SODIUM 134 mmol/L (136-145)
--- NOTE | 2019-02-08 06:50 | NUR ---
REPORT GIVEN TO HELENE. HGB 14.1, GI SCAN AROUND 1PM-2PM
[2019-02-08 07:36] VITALS: BP 111/65
[2019-02-08] MEDS: PANTOPRAZOLE 40 MG 10ML VIAL IV SCH (08:13)
[2019-02-08 08:30] VITALS: BP 111/65
--- NOTE | 2019-02-08 09:59 | Progress Note ---
DATE: SUBJECTIVE: The patient is a 73-year-old male, comes in with acute GI bleed. The patient had an endoscopy last evening. The patient was found to have gastritis. Biopsies were taken, but no acute sites of bleeding were seen. The patient's hemoglobin has gone up with transfusion of 2 units of PRBC. Currently, he is asymptomatic, did sleep well. No melenic stools noticed today. OBJECTIVE: VITAL SIGNS: Temperature is 98.0, pulse of 60, respirations 16, blood pressure is 116/68, and pulse oximetry of 98%. HEENT: Normocephalic and atraumatic. No pallor present. CVS: S1, S2 normal. Regular rate and rhythm. ABDOMEN: Nontender and nondistended. EXTREMITIES: No clubbing. No cyanosis. Positive for BKA. LABORATORY VALUES: Today his white count is 6.44, hemoglobin of 15.3 and dropped to 14.1 on single point drop. Platelet count is normal. RDW slightly elevated. Iron panels, iron is 264, TIBC 384, percent saturation 69, and transferrin is 274. Coags are within normal limits. ASSESSMENT: 1. Acute gastrointestinal bleed. 2. The patient has 2 units of PRBCs. 3. Gastritis. Continue with Protonix. 4. History of coronary artery disease, chronic obstructive pulmonary disease, and peripheral artery disease. Continue with medications. The patient also has O2 monitoring. PLAN: To do a GI bleed scan. The patient's GI bleed scan is normal. The patient can be sent home and will be seen in the office in about a week's time for repeat H and H. Further recommendation and clinical course, the patient will need a colonoscopy as an outpatient basis. Currently, the patient is stable and further treatment can be done as an outpatient. MD JOSE ARMANDO BartlettJ/MODL /[id number]
[2019-02-08 11:35] VITALS: BP 138/72
[2019-02-08] MEDS ORDERED: ONDANSETRON HCL 4 MG ORAL DISINTEGRATING TAB PO PRN (12:00)
--- NOTE | 2019-02-08 14:23 | NUR ---
PT TO [facility] MED AT THIS TIME FOR GI BLEED SCAN VIA WH/CH.
[2019-02-08 16:13] VITALS: BP 152/75
--- NOTE | 2019-02-08 16:45 | Diagnostic Imaging Report ---
Tagged-RBC GI Bleed Study Clinical information: 73-year-old male with anemia.. Received 2 units of pRBC's last night. Discussion: The patient's own red blood cells were labeled with 26.2 mCi of technetium-99m pertechnetate using the in vitro method (UltraTag). Dynamic images of the abdomen were obtained through 60 minutes. Distribution of tracer activity appears physiologic throughout the abdomen. No abnormal accumulation of tracer is seen within the gastrointestinal lumen. Impression: No scan evidence of active gastrointestinal bleeding at this time. Signed by: Dr. Delmy Sanon M.D. on 02/08/2019 4:42 PM
--- NOTE | 2019-02-08 16:54 | NUR ---
PAGED DR. Juan CHAPMAN AT THIS TIME TO NOTIFY REGARDING GI BLEED SCAN RESULTS FOR POSSIBLE D/C HOME ORDER. AWAITING CALL BACK.
[2019-02-08] MEDS ORDERED: PANTOPRAZOLE SOD 40 MG TABEC PO SCH (17:00)
--- NOTE | 2019-02-08 17:40 | NUR ---
REPAGED DR. Juan CHAPMAN AT THIS TIME. AWAITING CALL BACK.
[2019-02-08] MEDS ORDERED: CLONAZEPAM0.5 MG PO (18:22)
[2019-02-08] MEDS ORDERED: PANTOPRAZOLE SO40 MG PO (18:22)
--- NOTE | 2019-02-08 18:23 | NUR ---
RECEIVED CALL BACK FROM DR. Juan CHAPMAN PT UT TO D/C HOME. F/U IN OFFICE IN 7-10 DAYS
--- NOTE | 2019-02-08 18:38 | NUR ---
DISCHARGE INSTRUCTIONS AND PRESCRIPTIONS GIVEN. PT VERBALIZED UNDERSTANDING. RIGHT FA IV D/C AND PRESSURE DRESSING APPLIED. SUPERVISOR PAPER TESTING REMOVED AND RETURNED TO TELEMETRY ROOM. PT AWAITING DAUGHTER TO ARRIVE FOR RIDE HOME.
--- NOTE | 2019-02-08 19:21 | NUR ---
PATIENT DISCHARGED HOME VIA PRIVATE AUTOMOBILE. PATIENT ALERT AND ORIENTATED AT TIME OF DISCHARGE. ALL PERSONAL BELONGING WITH PATIENT AT TIME OF DISCHARGE. PATIENT IV AND TELEMETRY REMOVED BY DAY SHIFT NURSE HELENE.
== END 2019-02-08 19:21 | disposition home or self-care (01) | DRG 379 ==
LOC: ER 18:59 → ERHOLD 23:18 → MED/SURG 02-07 00:10
PROVIDERS: ADMIT Family Medicine; ATTEND Family Medicine
PROC: 30233N1 Transfusion of Nonautologous Red Blood Cells into Peripheral Vein, Percutaneous Approach (ICD-10-PCS; 2019-02-07)
PROC: 0DB68ZX Excision of Stomach, Via Natural or Artificial Opening Endoscopic, Diagnostic (ICD-10-PCS; principal; 2019-02-07 14:30)
DX: K29.71 Gastritis, unspecified, with bleeding (principal); D50.0 Iron deficiency anemia secondary to blood loss (chronic); K20.9 Esophagitis, unspecified; K44.9 Diaphragmatic hernia without obstruction or gangrene; K29.70 Gastritis, unspecified, without bleeding; E78.5 Hyperlipidemia, unspecified
CPT/HCPCS: 36415; 43239; 71045; 78278; 80048; 80053; 82270; 82550; 82553; 82948; 83540; 83880; 84466; 84484; 85025; 85610; 85730; 86850; 86900; 86920; 88305; 88312; 93005; 96374; 99284; A9512; J2250; J7030; J7050; P9016

== ENCOUNTER → 2021-01-28 | Outpatient (CLI) | payer MEDICARE ==
[~2021-01-28] MED LIST changes: +AMITRIPTYLINE H50 MG PO; +CLONAZEPAM0.5 MG PO; +NORCO 10-325 T1 EACH PO; +PANTOPRAZOLE SO40 MG PO; +TAMSULOSIN PO; +TYLENOL # 31 EA PO; +VASCEPA PO
== END ==
LOC: US 13:49
PROVIDERS: ATTEND Family Medicine
DX: R74.8 Abnormal levels of other serum enzymes (principal); N26.1 Atrophy of kidney (terminal)
CPT/HCPCS: 76705

== ENCOUNTER → 2021-01-30 | Outpatient (CLI) | payer MEDICARE ==
[~2021-01-30] MED LIST changes: +IOPAMIDOL 370 MG/ML 200 ML INFUS..BTL INJ ONE; +SODIUM CHLORIDE 0.9% 100 ML ONE
[2021-01-30 16:45] LABS: BLOOD UREA NITROGEN 26 mg/dL (7-26); BUN/CREATININE RATIO 25 (6-25); CREATININE, SERUM 1.03 mg/dL (0.72-1.25); EST GLOMERULAR FILTRATION RATE > 60 ML/MIN (60-)
== END ==
LOC: CT 15:33
PROVIDERS: ATTEND Surgery
DX: T87.89 Other complications of amputation stump (principal); Z89.512 Acquired absence of left leg below knee; T87.34 Neuroma of amputation stump, left lower extremity; M79.604 Pain in right leg; G89.29 Other chronic pain
CPT/HCPCS: 36415; 75635; 82565; 84520; J7050; Q9967

== ENCOUNTER → 2021-08-26 | Outpatient (CLI) | payer MEDICARE ==
[~2021-08-26] MED LIST changes: -IOPAMIDOL 370 MG/ML 200 ML INFUS..BTL INJ ONE; -SODIUM CHLORIDE 0.9% 100 ML ONE
== END ==
LOC: CARD 08:27
PROVIDERS: ATTEND Family Medicine
DX: R09.89 Other specified symptoms and signs involving the circulatory and respiratory systems (principal)
CPT/HCPCS: 93880

== ENCOUNTER → 2021-10-12 | Outpatient (CLI) | payer MEDICARE ==
[~2021-10-12] MED LIST changes: +IOPAMIDOL 200 MG/ML 20 ML VIAL IT ONE; +IOPAMIDOL 300 MG/ML 15ML VIAL IT ONE; +LIDOCAINE HCL 1% LOCAL INJ 20 ML VIAL ONE
[2021-10-12 12:27] LABS: HEMOGLOBIN 11.6 g/dL (14.0-18.0)
[2021-10-12 12:39] LABS: INR 0.95; PROTHROMBIN TIME 13.3 seconds (11.9-14.5)
[2021-10-12 12:40] LABS: PARTIAL THROMBOPLASTIN TIME 30.5 seconds (23.8-35.5)
== END ==
LOC: DX 11:58
PROVIDERS: ATTEND Family Medicine
DX: M54.2 Cervicalgia (principal)
CPT/HCPCS: 36415; 62302; 72126; 85014; 85049; 85610; 85730; J2001; Q9967

== ENCOUNTER → 2022-06-22 | Outpatient (CLI) | payer MEDICARE, OTHER ==
[~2022-06-22] MED LIST changes: -IOPAMIDOL 200 MG/ML 20 ML VIAL IT ONE; -IOPAMIDOL 300 MG/ML 15ML VIAL IT ONE; -LIDOCAINE HCL 1% LOCAL INJ 20 ML VIAL ONE
== END ==
LOC: CT 13:53
PROVIDERS: ATTEND Surgery
DX: G89.29 Other chronic pain (principal); Z89.512 Acquired absence of left leg below knee

== ENCOUNTER 2022-10-08 07:59 | Observation (INO) | payer MEDICARE, OTHER ==
[~2022-10-08] VITALS: Ht 170.2 cm; Wt 63.5 kg
[~2022-10-08 07:59] MED LIST changes: -FAMOTIDINE 20 MG/2 ML VIAL IV ONE; -FENTANYL CITRATE/PF 100MCG/2 ML INJ ONE
[2022-10-08 09:54] LABS: BASOPHILS # (AUTO) 0.1 (0.0-0.1); BASOPHILS % 0.9 % (0.0-1.0); EOSINOPHILS # (AUTO) 1.2 (0.0-0.4); EOSINOPHILS % 17.7 % (0.0-6.0); HEMATOCRIT 41.9 % (38.2-49.6); HEMOGLOBIN 13.6 g/dL (14.0-18.0); LYMPHOCYTES # (AUTO) 1.7 (1.0-3.2); LYMPHOCYTES % 25.4 % (18.0-39.1); MEAN CORPUSCULAR HGB CONC 32.5 g/dL (31-35); MEAN CORPUSCULAR VOLUME 95.4 fL (81-99); MONOCYTES # (AUTO) 0.4 (0.2-0.8); MONOCYTES % 6.5 % (4.4-11.3); NEUTROPHILS # (AUTO) 3.3 (2.1-6.9); NEUTROPHILS % 48.9 % (38.7-80.0); PLATELET COUNT 156 x10e3/uL (140-360); RED BLOOD COUNT 4.39 x10e6/uL (4.3-5.7); RED CELL DISTRIBUTION WIDTH 14.4 % (11.7-14.4)
[2022-10-08 10:16] LABS: ALBUMIN 3.3 g/dL (3.5-5.0); ALBUMIN/GLOBULIN RATIO 1.1 (0.8-2.0); ANION GAP 11.1 mmol/L (8-16); CREATININE, SERUM 0.98 mg/dL (0.72-1.25); POTASSIUM 5.1 mmol/L (3.5-5.1)
[2022-10-08] MEDS ORDERED: PROPOFOL IV EMULSION 10 MG/ML 20 ML VIAL ONE (12:15)
[2022-10-08] MEDS ORDERED: ONDANSETRON HCL INJ 2MG/ML 2ML 2 MG/ML VIAL ONE (12:15)
[2022-10-08] MEDS ORDERED: SEVOFLURANE INHAL SOLN 250 ML PEN BTL ONE (12:15)
[2022-10-08] MEDS ORDERED: LIDOCAINE HCL 2% LOCAL INJ 5 ML SDV VIAL INJ ONE (12:15)
[2022-10-08] MEDS ORDERED: DEXAMETHASONE SOD PHOS INJ 4 MG/ML SDV ONE (12:15)
[2022-10-08] MEDS ORDERED: KETOROLAC TROMETHAMINE 30 MG/ML VIAL ONE (12:15)
[2022-10-08] MEDS ORDERED: POVIDONE IODINE 0.05% 0.05 % ML PO ONE (12:15)
[2022-10-08] MEDS ORDERED: HYDROMORPHONE 1MG/1ML INJ IV PRN (13:00)
[2022-10-08] MEDS ORDERED: ONDANSETRON HCL INJ 2MG/ML 2ML 2 MG/ML VIAL IV PRN (13:00)
[2022-10-08] MEDS ORDERED: HYDROCODONE/APAP 7.5MG-325MG 1 EA TAB PO PRN (13:00)
[2022-10-08] MEDS ORDERED: FENTANYL CITRATE/PF 100MCG/2 ML INJ ONE (13:18)
[2022-10-08 15:00] VITALS: BP 121/72
[2022-10-08] MEDS: PREGABALIN 75 MG CAP PO SCH ×2 (15:42→22:07)
[2022-10-08] MEDS: SODIUM CHLORIDE 0.9% 1000ML 1,000 ML IV SCH ×2 (16:03→23:31)
[2022-10-08 17:00] VITALS: BP 121/72
[2022-10-08] MEDS: METFORMIN HCL 500 MG TAB PO SCH (18:00)
[2022-10-08 20:00] VITALS: BP 121/72
[2022-10-08 21:30] VITALS: BP 113/61
[2022-10-08] MEDS: CLONAZEPAM 0.5 MG TAB PO SCH (22:07)
[2022-10-08] MEDS: TRAZODONE HCL 50 MG TAB PO SCH (22:07)
[2022-10-08] MEDS: DULOXETINE HCL 30 MG DELAYED RELEASE PO SCH (22:07)
[2022-10-09] VITALS (8 sets, daily range): BP systolic 111–126; BP diastolic 61–73
[2022-10-09 06:41] LABS: BASOPHILS % 0.2 % (0.0-1.0); HEMATOCRIT 34.7 % (38.2-49.6); HEMOGLOBIN 11.9 g/dL (14.0-18.0); LYMPHOCYTES # (AUTO) 0.9 (1.0-3.2); LYMPHOCYTES % 8.8 % (18.0-39.1); MEAN CORPUSCULAR HEMOGLOBIN 30.8 pg (28-32); MEAN CORPUSCULAR HGB CONC 34.3 g/dL (31-35); MEAN CORPUSCULAR VOLUME 89.9 fL (81-99); MONOCYTES # (AUTO) 0.2 (0.2-0.8); MONOCYTES % 2.4 % (4.4-11.3); NEUTROPHILS # (AUTO) 8.9 (2.1-6.9); NEUTROPHILS % 87.9 % (38.7-80.0); PLATELET COUNT 147 x10e3/uL (140-360); RED BLOOD COUNT 3.86 x10e6/uL (4.3-5.7); RED CELL DISTRIBUTION WIDTH 14.5 % (11.7-14.4)
[2022-10-09 07:07] LABS: ANION GAP 12.7 mmol/L (8-16); CALCIUM 8.1 mg/dL (8.4-10.2); CREATININE, SERUM 1.03 mg/dL (0.72-1.25); POTASSIUM 4.7 mmol/L (3.5-5.1)
[2022-10-09] MEDS ORDERED: FAMOTIDINE 20 MG TAB PO SCH (07:30)
[2022-10-09] MEDS ORDERED: NON-FORMULARY MEDICATION ([Tamsulosin] 0.4 MG) PO SCH (09:00)
[2022-10-09] MEDS ORDERED: PANTOPRAZOLE SOD 40 MG TABEC PO SCH (09:00)
[2022-10-09] MEDS ORDERED: TAMSULOSIN HCL 0.4 MG CAP PO SCH (09:00)
[2022-10-09] MEDS ORDERED: AMIODARONE HCL 200 MG TAB PO SCH (09:00)
[2022-10-09] MEDS ORDERED: OXYBUTYNIN CHLORIDE 5 MG TAB PO SCH (09:00)
[2022-10-09] MEDS: SODIUM CHLORIDE 0.9% 1000ML 1,000 ML IV SCH ×2 (09:00→19:00)
[2022-10-09] MEDS ORDERED: MONTELUKAST SODIUM 10 MG TAB PO SCH (09:00)
[2022-10-09] MEDS ORDERED: TERBINAFINE 250 MG TAB PO SCH (09:00)
[2022-10-09] MEDS: METFORMIN HCL 500 MG TAB PO SCH ×2 (09:55→16:41)
[2022-10-09] MEDS: PREGABALIN 75 MG CAP PO SCH ×3 (09:56→20:11)
[2022-10-09] MEDS: CLONAZEPAM 0.5 MG TAB PO SCH (20:11)
[2022-10-09] MEDS: DULOXETINE HCL 30 MG DELAYED RELEASE PO SCH (20:11)
[2022-10-09] MEDS: TRAZODONE HCL 50 MG TAB PO SCH (20:13)
== END 2022-10-09 22:33 | disposition home or self-care (01) ==
LOC: OR 07:59 → PACU V 12:51 → MED/SURG3 14:53
PROVIDERS: ADMIT Surgery; ATTEND Surgery
DX: T87.34 Neuroma of amputation stump, left lower extremity (principal); E11.9 Type 2 diabetes mellitus without complications; K21.9 Gastro-esophageal reflux disease without esophagitis; N40.0 Benign prostatic hyperplasia without lower urinary tract symptoms; G62.9 Polyneuropathy, unspecified; J44.9 Chronic obstructive pulmonary disease, unspecified; I10 Essential (primary) hypertension; I73.9 Peripheral vascular disease, unspecified; E78.5 Hyperlipidemia, unspecified; F41.9 Anxiety disorder, unspecified; Z20.822 Contact with and (suspected) exposure to COVID-19; Z79.84 Long term (current) use of oral hypoglycemic drugs; Z79.899 Other long term (current) drug therapy; Z95.0 Presence of cardiac pacemaker; Z95.5 Presence of coronary angioplasty implant and graft; Z95.820 Peripheral vascular angioplasty status with implants and grafts
CPT/HCPCS: 0223U; 36415 ×2; 64784; 71046; 80048; 80053; 82948 ×2; 85025 ×2; 88304; 93005; G0378 ×2; J0690; J1100; J1170; J1885; J2001; J2405; J2704; J3010; J7030 ×2; S0164

== ENCOUNTER → 2022-10-08 | Outpatient (CLI) | payer MEDICARE, OTHER ==
[~2022-10-08] MED LIST changes: +AMIODARONE HCL200 MG PO; +ANORO ELLIPTA1 EACH INH; +CYMBALTA30 MG PO; +FAMOTIDINE 20 MG/2 ML VIAL IV ONE; +FENTANYL CITRATE/PF 100MCG/2 ML INJ ONE; +FLECTOR1 EACH TD; +HYDROXYZIN10 MG/5 ML PO; +MONTELUKAST SOD10 MG PO; +OXYBUTYNIN CHLOR5 MG PO; +TERBINAFINE HC250 MG PO
== END ==
LOC: RAD 07:48
PROVIDERS: ATTEND Surgery
DX: Z95.0 Presence of cardiac pacemaker (principal)
CPT/HCPCS: 93306; J3010

== ENCOUNTER 2025-07-07 09:31 | Emergency (ER) | payer MEDICARE, OTHER ==
[~2025-07-07] VITALS: Ht 170.2 cm; Wt 61.2 kg
[2025-07-07 09:36] VITALS: RESP 16; TEMP 98.9
[2025-07-07 10:30] VITALS: PULSE 62; O2SAT 100
[2025-07-07] MEDS ORDERED: GOLYTELY SOLU4000 M1 PO (11:28)
== END 2025-07-07 12:55 | disposition home or self-care (01) ==
LOC: ER 09:36
DX: R10.12 Left upper quadrant pain (principal); K59.00 Constipation, unspecified; I10 Essential (primary) hypertension; E11.65 Type 2 diabetes mellitus with hyperglycemia; E11.40 Type 2 diabetes mellitus with diabetic neuropathy, unspecified; E78.5 Hyperlipidemia, unspecified; K21.9 Gastro-esophageal reflux disease without esophagitis; F41.9 Anxiety disorder, unspecified; F32.A Depression, unspecified; Z89.512 Acquired absence of left leg below knee; Z89.511 Acquired absence of right leg below knee; Z95.810 Presence of automatic (implantable) cardiac defibrillator
CPT/HCPCS: 74176; 99283